=== PATIENT | female | born 1990 | race Caucasian/White ===

== ENCOUNTER 2018-04-09 17:12 | Emergency (ER) | payer OTHER ==
[2018-04-09] MEDS ORDERED: FAMOTIDINE 20 MG/2 ML VIAL IV ONE (18:32)
[2018-04-09] MEDS ORDERED: NA CHLORIDE 0.9% 1,000 ML ONE (18:32)
[2018-04-09] MEDS ORDERED: ONDANSETRON 4 MG/2 ML VIAL ONE (18:32)
[2018-04-09 18:37] LABS: Urine Blood TRACE (NEG); Urine Glucose NEGATIVE (NEG); Urine Protein NEGATIVE (NEG); Urine Specific Gravity >1.030 (1.005-1.030)
[2018-04-09 18:53] LABS: Absolute Lymphocytes (CBC) 2.4 K/uL (0.7-4.9); Absolute Monocytes 0.6 K/uL (0.1-1.3); Absolute Neutrophil 6.6 K/uL (1.8-8.0); Basophils % 0.4 % (0-1.3); Eosinophils % 0.7 % (0-4.4); Hematocrit 36.1 % (36.0-45.0); Lymphocytes % 25.1 % (15.3-44.8); MCH 26.2 pg (27.0-35.0); MCV 78.6 fL (80-100); MPV 7.7 fL (7.6-11.3); Monocytes % 5.9 % (3.3-12.3); RBC Red Blood Cell Count 4.59 M/uL (3.86-4.86)
[2018-04-09 19:27] LABS: BUN Blood Urea Nitrogen 7 mg/dL (7-18); Bicarbonate 23 mmol/L (21-32); Glucose Level 96 mg/dL (74-106); HCG, Quantitative 32093 mIU/mL (1-3); Potassium 3.8 mmol/L (3.5-5.1); Sodium Level 139 mmol/L (136-145)
--- NOTE | 2018-04-09 20:53 | RAD REPORT ---
EXAM DESCRIPTION: US - Transvaginal OB - 04/09/2018 8:46 pm CLINICAL HISTORY: Left lower abdominal pain, pelvic pain COMPARISON: None. FINDINGS: An intrauterine gestational sac is identified containing pole and yolk sac. Gestatio nal sac and crown-rump length measurements yield a 6 week 5 day age. Calculated REMY is 11/28/2018. 11 6 BPM. No intrauterine hematoma or mass. Anechoic fluid is present in the cul-de-sac. A mildly comple x cystic area in the right ovary is present 2.7 x 1.5 x 2.3 cm. Hypoechoic left ovarian mass 16 mm in size is probably a hemorrhagic cyst. Doppler evaluation demonstrates blood flow weighting and bilate ral ovarian stroma. IMPRESSION: Single 6 week 5 day IUP. Heart rate is 116 BPM. No intrauterine hematoma or mass. Minimally complex right side and more complex left-side cysts. Left-side cysts is likely hemorrhagic. Blood flow is identifiable in both ovaries. If patient remains symptomatic, short-term follow-up coul d be performed to evaluate for progression or resolution of the presumed ovarian cysts.
--- NOTE | 2018-04-09 21:18 | EDPHYS ---
Physician Documentation [facility] Name: Aurelia Santacruz Age: 27 yrs Sex: Female : 1990 Arrival Date: 04/09/2018 Time: 17:16 Bed 30 Private MD: ED Physician Jatinder Rowell HPI: 04/09 17:50 This 27 yrs old Female presents to ER via Ambulatory with complaints of cp Vomiting. 17:50 The patient presents to the emergency department with nausea, that is mild, vomiting, cp that is intermittent, abdominal pain, of the left lower quadrant. 17:50 Onset: The symptoms/episode began/occurred today. Possible causes: . cp Associated signs and symptoms: Pertinent positives: abdominal pain, nausea, vomiting, Pertinent negatives: constipation, diarrhea, dysuria, fever, GI bleeding, vaginal discharge. Severity of symptoms: in the emergency department the symptoms are unchanged despite home interventions. 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 - Social history:: Smoking status: Patient uses tobacco products, smokes one pack cigarettes per day. - Ebola Screening: : Patient negative for fever greater than or equal to 101.5 degrees Fahrenheit, and additional compatible Ebola Virus Disease symptoms Patient denies exposure to infectious person Patient denies travel to an Ebola-affected area in the 21 days before illness onset No symptoms or risks identified at this time. ROS: 18:00 Constitutional: Positive for poor PO intake, Negative for body aches, chills, fever. cp 18:00 Eyes: Negative for injury, pain, redness, and discharge. cp 18:00 ENT: Negative for drainage from ear(s), ear pain, sore throat, difficulty swallowing, difficulty handling secretions. 18:00 Neck: Negative for pain with movement, pain at rest, stiffness, tenderness, bony tenderness. 18:00 Cardiovascular: Negative for chest pain, edema, palpitations. 18:00 Respiratory: Negative for cough, shortness of breath, wheezing. 18:00 Abdomen/GI: Positive for abdominal pain, nausea, vomiting, of the left lower quadrant, Negative for diarrhea, constipation, black/tarry stool, rectal bleeding. 18:00 Back: Positive for radiated pain. 18:00 : Negative for urinary symptoms, pelvic pain, vaginal bleeding, vaginal discharge, leakage of fluids. 18:00 Skin: Negative for cellulitis, rash. 18:00 Neuro: Negative for altered mental status, headache, syncope, near syncope, weakness. 18:00 All other systems are negative. Exam: 18:12 Constitutional: The patient appears in no acute distress, alert, awake, non-toxic, well cp developed, well nourished. 18:12 Head/Face: Normocephalic, atraumatic. cp 18:12 Eyes: Periorbital structures: appear normal, Pupils: equal, round, and reactive to light and accomodation, Extraocular movements: intact throughout, Conjunctiva: normal, no exudate, no injection, Sclera: no appreciated abnormality, Lids and lashes: appear normal, bilaterally. 18:12 ENT: External ear(s): are unremarkable, Ear canal(s): are normal, clear, TM's: bulging, is not appreciated, bilaterally, dullness, bilaterally, erythema, is not appreciated, bilaterally, Nose: is normal, Mouth: Lips: moist, Oral mucosa: pink and intact, moist, Posterior pharynx: is normal, airway is patent, no erythema, no exudate, Voice: is normal. 18:12 Neck: ROM/movement: is normal, is supple, without pain, no range of motions limitations, no nuchal rigidity. 18:12 Chest/axilla: Inspection: normal, Palpation: is normal, no crepitus, no tenderness. 18:12 Cardiovascular: Rate: normal, Rhythm: regular, Edema: is not appreciated, JVD: is not appreciated. 18:12 Respiratory: the patient does not display signs of respiratory distress, Respirations: normal, no use of accessory muscles, no retractions, no splinting, no tachypnea, labored breathing, is not present, Breath sounds: are clear throughout, no decreased breath sounds, no stridor, no wheezing. 18:12 Abdomen/GI: Inspection: obese Bowel sounds: active, all quadrants, Palpation: soft, in all quadrants, mild abdominal tenderness, in the left lower quadrant, rebound tenderness, is not appreciated, voluntary guarding, is elicited in the left lower quadrant, involuntary guarding, is not appreciated. 18:12 Back: ROM is normal. 18:12 Skin: cellulitis, is not appreciated, no rash present. 18:12 Neuro: Orientation: to person, place \T\ time. Mentation: lucid, able to follow commands, Motor: moves all fours, strength is normal, Sensation: no obvious gross deficits. Vital Signs: 17:41 BP 129 / 62; Pulse 93; Resp 16; Temp 98.2; Pulse Ox 100% on R/A; Weight 106.59 kg; iw Height 5 ft. 2 in. (157.48 cm); Pain 8/10; 17:54 BP 131 / 72 Supine; Pulse 73; rv 17:54 BP 136 / 77 Sitting; Pulse 83; rv 17:54 BP 126 / 82 Standing; Pulse 103; rv 18:53 BP 120 / 72; Pulse 67; Pulse Ox 100% on R/A; rv 19:57 BP 112 / 74; Pulse 67; Pulse Ox 99% on R/A; rv 20:51 BP 128 / 92; Pulse 74; Pulse Ox 99% on R/A; rv 21:33 BP 128 / 86; Pulse 74; Pulse Ox 98% on R/A; rv 17:41 Body Mass Index 42.98 (106.59 kg, 157.48 cm) iw MDM: 17:41 Patient medically screened. cp 18:00 Differential diagnosis: Nonspecific abd pain, gastritis, cholecystitis, diverticulitis, cp viral gastroenteritis, gastroenteritis, ectopic , vaginitis. 21:15 Data reviewed: vital signs, nurses notes, lab test result(s), radiologic studies, cp ultrasound. 21:15 Counseling: I had a detailed discussion with the patient and/or guardian regarding: the cp historical points, exam findings, and any diagnostic results supporting the discharge/admit diagnosis, lab results, radiology results, the need for outpatient follow up, an OB/Gyne specialist, to return to the emergency department if symptoms worsen or persist or if there are any questions or concerns that arise at home. Response to treatment: the patient's symptoms have markedly improved after treatment, VSS. Nausea improved and vomiting resolved. Will discharge to home for continued monitoring. 04/09 18:25 Order name: Quantitative Hcg cp 04/09 18:25 Order name: Abo/rh Typing; Complete Time: 19:31 cp 04/09 18:25 Order name: Basic Metabolic Panel; Complete Time: 19:31 cp 04/09 18:25 Order name: CBC with Diff; Complete Time: 19:31 cp 04/09 18:25 Order name: HCG, Quantitative; Complete Time: 19:31 EDMS 04/09 20:43 Interpretation: HCGQ 10048; Reviewed. cp 04/09 18:31 Order name: Urine Dipstick--Ancillary (enter results); Complete Time: 19:31 ag 04/09 17:41 Order name: Orthostatics; Complete Time: 17:53 cp 04/09 18:25 Order name: Urine Test (obtain specimen); Complete Time: 18:49 cp 04/09 18:25 Order name: IV Saline Lock; Complete Time: 18:49 cp 04/09 18:31 Order name: Urine --Ancillary (enter results); Complete Time: 19:31 ag 04/09 19:32 Order name: US Transvaginal Ob; Complete Time: 21:10 cp 04/09 18:25 Order name: Labs collected and sent; Complete Time: 18:49 cp 04/09 18:25 Order name: NPO; Complete Time: 18:49 cp 04/09 18:25 Order name: Urine Dipstick-Ancillary (obtain specimen); Complete Time: 18:49 cp 04/09 20:44 Order name: PO challenge; Complete Time: 20:49 cp Administered Medications: 18:48 Drug: Zofran 4 mg Route: IVP; Site: right antecubital; rv 20:47 Follow up: Response: No adverse reaction; Nausea is decreased rv 18:48 Drug: Pepcid 20 mg Route: IVP; Site: right antecubital; rv 20:46 Follow up: Response: No adverse reaction; Nausea is decreased rv 18:49 Drug: NS 0.9% 1000 ml Route: IV; Rate: 1000 ml; Site: right antecubital; rv 20:47 Follow up: Response: No adverse reaction; IV Status: Completed infusion rv Disposition: 04/09/18 21:17 Discharged to Home. Impression: Nausea and vomiting, related conditions, unspecified, first trimester, Other and unspecified ovarian cysts - Bilateral. - Condition is Stable. - Discharge Instructions: Abdominal Pain During , Nausea and Vomiting, Adult, Ovarian Cyst, First Trimester of . - Prescriptions for Pepcid 20 mg Oral Tablet - take 1 tablet by ORAL route every 12 hours for 10 days; 20 tablet. Vitamin 27- 0.8 mg Oral Tablet - take 1 tablet by ORAL route once daily; 60 tablet. Phenergan 25 mg Rectal Suppository - insert 1 suppository by RECTAL route every 6 hours As needed; 12 suppository. promethazine 25 mg Oral Tablet - take 1 tablet by ORAL route every 6 hours As needed; 20 tablet. - Medication Reconciliation Form, Thank You Letter, Antibiotic Education, Prescription Opioid Use, Work release form form. - Follow up: Rosa Sanchez MD; When: 1 week; Reason: Recheck today's complaints. - Problem is new. - Symptoms have improved. Addendum: 04/12/2018 07:21 Co-signature as Attending Physician, Jatinder Rowell MD I agree with the assessment and k dr plan of care. Signatures: Dispatcher [employer] EDMS Jatinder Rowell MD MD kdr Yazmin Abdalla RN RN iw Noble Real PA PA cp Pan Tamayo, RN RN rv Corrections: (The following items were deleted from the chart) 04/09 21:34 21:17 04/09/2018 21:17 Discharged to Home. Impression: Nausea and vomiting; rv related conditions, unspecified, first trimester; Other and unspecified ovarian cysts - Bilateral. Condition is Stable. Forms are Medication Reconciliation Form, Thank You Letter, Antibiotic Education, Prescription Opioid Use. Follow up: Rosa Sanchez; When: 1 week; Reason: Recheck today's complaints. Problem is new. Symptoms have improved. cp
--- NOTE | 2018-04-09 21:18 | ER ---
Nurse's Notes [facility] Name: Aurelia Santacruz Age: 27 yrs Sex: Female : 1990 Arrival Date: 04/09/2018 Time: 17:16 Bed 30 Private MD: Diagnosis: Nausea and vomiting; related conditions, unspecified, first trimester;Other and unspecified ovarian cysts-Bilateral Presentation: 04/09 17:39 Presenting complaint: Patient states: vomiting today, feels cramping/tightness in LLQ iw and back when she vomits, no vaginal bleeding apporx 6 weeks , previous ectopic last year. Transition of care: patient was not received from another setting of care. Onset of symptoms was April 09, 2018. Risk Assessment: Do you want to hurt yourself or someone else? Patient reports no desire to harm self or others. Initial Sepsis Screen: Does the patient meet any 2 criteria? No. Patient's initial sepsis screen is negative. Does the patient have a suspected source of infection? No. Patient's initial sepsis screen is negative. Care prior to arrival: None. 17:39 Method Of Arrival: Ambulatory 17:39 Acuity: CHIRAG 3 iw Triage Assessment: 17:56 GI: Reports vomiting. 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 - Social history:: Smoking status: Patient uses tobacco products, smokes one pack cigarettes per day. - Ebola Screening: : Patient negative for fever greater than or equal to 101.5 degrees Fahrenheit, and additional compatible Ebola Virus Disease symptoms Patient denies exposure to infectious person Patient denies travel to an Ebola-affected area in the 21 days before illness onset No symptoms or risks identified at this time. Screenin:56 Abuse screen: Denies threats or abuse. Denies injuries from another. Nutritional rv screening: No deficits noted. Tuberculosis screening: No symptoms or risk factors identified. Fall Risk None identified. Assessment: 17:55 General: Appears in no apparent distress. comfortable, Behavior is calm, cooperative. rv Pain: Denies pain. Neuro: Level of Consciousness is awake, alert, obeys commands, Oriented to person, place, time, situation. Cardiovascular: Capillary refill < 3 seconds. Respiratory: Airway is patent. GI: Abdomen is round non-distended. : No signs and/or symptoms were reported regarding the genitourinary system. EENT: No signs and/or symptoms were reported regarding the EENT system. Derm: Skin is intact. Vital Signs: 17:41 BP 129 / 62; Pulse 93; Resp 16; Temp 98.2; Pulse Ox 100% on R/A; Weight 106.59 kg; iw Height 5 ft. 2 in. (157.48 cm); Pain 8/10; 17:54 BP 131 / 72 Supine; Pulse 73; rv 17:54 BP 136 / 77 Sitting; Pulse 83; rv 17:54 BP 126 / 82 Standing; Pulse 103; rv 18:53 BP 120 / 72; Pulse 67; Pulse Ox 100% on R/A; rv 19:57 BP 112 / 74; Pulse 67; Pulse Ox 99% on R/A; rv 20:51 BP 128 / 92; Pulse 74; Pulse Ox 99% on R/A; rv 21:33 BP 128 / 86; Pulse 74; Pulse Ox 98% on R/A; rv 17:41 Body Mass Index 42.98 (106.59 kg, 157.48 cm) iw ED Course: 17:16 Patient arrived in ED. rg4 17:40 Triage completed. iw 17:41 Noble Real PA is PHCP. cp 17:41 Jatinder Rowell MD is Attending Physician. cp 17:41 Arm band placed on. iw 17:56 Patient has correct armband on for positive identification. Bed in low position. Call rv light in reach. Side rails up X 1. Pulse ox on. NIBP on. 18:40 Inserted saline lock: 20 gauge in right antecubital area, using aseptic technique. rv 20:46 US Transvaginal Ob In Process Unspecified. EDMS 20:54 Awaiting radiology results. rv 21:14 Rosa Sanchez MD is Referral Physician. cp 21:34 No provider procedures requiring assistance completed. IV discontinued, bleeding rv controlled, No redness/swelling at site. Pressure dressing applied. Administered Medications: 18:48 Drug: Zofran 4 mg Route: IVP; Site: right antecubital; rv 20:47 Follow up: Response: No adverse reaction; Nausea is decreased rv 18:48 Drug: Pepcid 20 mg Route: IVP; Site: right antecubital; rv 20:46 Follow up: Response: No adverse reaction; Nausea is decreased rv 18:49 Drug: NS 0.9% 1000 ml Route: IV; Rate: 1000 ml; Site: right antecubital; rv 20:47 Follow up: Response: No adverse reaction; IV Status: Completed infusion rv Outcome: 21:17 Discharge ordered by . elle 21:34 Discharged to home ambulatory. rv 21:34 Condition: improved 21:34 Discharge instructions given to patient, Instructed on discharge instructions, follow up and referral plans. medication usage, Prescriptions given X 4. 21:34 Patient left the ED. rv Signatures: Dispatcher [employer] Yazmin Álvarez, RN RN Noble Gongora PA PA cp Garcia, Rubi rg4 Pan Tamayo RN RN rv
[2018-04-09 21:41] VITALS: TEMP 98.2
[2018-04-09 21:47] VITALS: BP 128/86; O2SAT 98
== END 2018-04-09 21:34 | disposition home or self-care (01) ==
LOC: ER 17:12
DX: N83.292 Other ovarian cyst, left side (principal); N83.291 Other ovarian cyst, right side; O99.331 Smoking (tobacco) complicating pregnancy, first trimester; F17.210 Nicotine dependence, cigarettes, uncomplicated; Z88.5 Allergy status to narcotic agent
CPT/HCPCS: 36415; 76817; 80048; 81003; 81025; 84702; 85025; 86900; 86901; 96361; 96374; 96375; 99284; J2405; J7030

== ENCOUNTER 2018-05-22 15:41 | Emergency (ER) | payer OTHER ==
[2018-05-22] MEDS ORDERED: NA CHLORIDE 0.9% 1,000 ML ONE (16:24)
[2018-05-22] MEDS ORDERED: PROMETHAZINE 25 MG/ML VIAL ONE (16:24)
[2018-05-22 16:36] LABS: Absolute Lymphocytes (CBC) 1.6 K/uL (0.7-4.9); Absolute Monocytes 0.5 K/uL (0.1-1.3); Absolute Neutrophil 7.1 K/uL (1.8-8.0); Basophils % 0.4 % (0-1.3); Eosinophils % 0.7 % (0-4.4); Hematocrit 38.1 % (36.0-45.0); Lymphocytes % 16.8 % (15.3-44.8); MCH 27.2 pg (27.0-35.0); MCV 81.1 fL (80-100); Monocytes % 5.6 % (3.3-12.3)
[2018-05-22 17:03] LABS: Urine Bacteria 20-50 /HPF (<20); Urine Culture Reflex Order REFLEXED; Urine Mucus 3+ /HPF (NONE SEEN); Urine RBC <5 /HPF (NONE SEEN)
[2018-05-22 17:14] LABS: Urine Blood NEGATIVE (NEG); Urine Glucose NEGATIVE (NEG); Urine Protein NEGATIVE (NEG); Urine Specific Gravity >1.030 (1.005-1.030)
[2018-05-22 17:15] LABS: BUN Blood Urea Nitrogen 7 mg/dL (7-18); Bicarbonate 23 mmol/L (21-32); Glucose Level 78 mg/dL (74-106); Potassium 3.7 mmol/L (3.5-5.1); Sodium Level 136 mmol/L (136-145)
--- NOTE | 2018-05-22 17:28 | EDPHYS ---
Physician Documentation [facility] Name: Aurelia Santacruz Age: 27 yrs Sex: Female : 1990 Arrival Date: 05/22/2018 Time: 15:45 Bed 6 Private MD: None, None ED Physician Toñito Ernandez HPI: 05/22 16:39 This 27 yrs old Female presents to ER via Ambulatory with complaints of 12 pm1 wks , Nausea/Vomiting. 16:39 The patient presents to the emergency department with nausea, vomiting, 6 times since pm1 the onset of symptoms. Onset: The symptoms/episode began/occurred 2 day(s) ago. Possible causes: . The symptoms are aggravated by Diclegis appears to make it worse per patient. Associated signs and symptoms: Pertinent negatives: abdominal pain, dysuria, fever, vaginal discharge, vaginal bleeding. The patient has experienced similar episodes in the past, multiple times. The patient has been recently seen by a physician: Patient was seen by her OB on 04/16 and prescribed diclegis. Patient started the medications two days ago and reports that the medications seems to make her nausea and vomiting worse. 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 - Social history:: Smoking status: Patient/guardian denies using tobacco. - Ebola Screening: : Patient negative for fever greater than or equal to 101.5 degrees Fahrenheit, and additional compatible Ebola Virus Disease symptoms Patient denies exposure to infectious person Patient denies travel to an Ebola-affected area in the 21 days before illness onset No symptoms or risks identified at this time. ROS: 16:39 Constitutional: Negative for fever, chills, and weight loss, Eyes: Negative for injury, pm1 pain, redness, and discharge, ENT: Negative for injury, pain, and discharge, Neck: Negative for injury, pain, and swelling, Cardiovascular: Negative for chest pain, palpitations, and edema, Respiratory: Negative for shortness of breath, cough, wheezing, and pleuritic chest pain. 16:39 Back: Negative for injury and pain, : Negative for injury, bleeding, discharge, and swelling, MS/Extremity: Negative for injury and deformity, Skin: Negative for injury, rash, and discoloration, Neuro: Negative for headache, weakness, numbness, tingling, and seizure. 16:39 Abdomen/GI: Positive for nausea and vomiting, Negative for abdominal pain, diarrhea. Exam: 16:39 Constitutional: This is a well developed, well nourished patient who is awake, alert, pm1 and in no acute distress. Head/Face: Normocephalic, atraumatic. Eyes: Pupils equal round and reactive to light, extra-ocular motions intact. Lids and lashes normal. Conjunctiva and sclera are non-icteric and not injected. Cornea within normal limits. Periorbital areas with no swelling, redness, or edema. ENT: Nares patent. No nasal discharge, no septal abnormalities noted. Tympanic membranes are normal and external auditory canals are clear. Oropharynx with no redness, swelling, or masses, exudates, or evidence of obstruction, uvula midline. Mucous membranes moist. Neck: Trachea midline, no thyromegaly or masses palpated, and no cervical lymphadenopathy. Supple, full range of motion without nuchal rigidity, or vertebral point tenderness. No Meningismus. Chest/axilla: Normal chest wall appearance and motion. Nontender with no deformity. No lesions are appreciated. Cardiovascular: Regular rate and rhythm with a normal S1 and S2. No gallops, murmurs, or rubs. No pulse deficits. Respiratory: Lungs have equal breath sounds bilaterally, clear to auscultation and percussion. No rales, rhonchi or wheezes noted. No increased work of breathing, no retractions or nasal flaring. Abdomen/GI: Soft, non-tender, with normal bowel sounds. No distension or tympany. No guarding or rebound. No evidence of tenderness throughout. Back: No spinal tenderness. No costovertebral tenderness. Full range of motion. Skin: Warm, dry with normal turgor. Normal color with no rashes, no lesions, and no evidence of cellulitis. MS/ Extremity: Pulses equal, no cyanosis. Neurovascular intact. Full, normal range of motion. 16:39 Neuro: Orientation: is normal, Motor: moves all fours. Vital Signs: 15:49 BP 129 / 73; Pulse 89; Resp 17; Temp 97.6; Pulse Ox 98% on R/A; Weight 106.59 kg; aj Height 5 ft. 2 in. (157.48 cm); 17:55 BP 127 / 74; Pulse 84; Resp 16; Pulse Ox 97% on R/A; la1 15:49 Body Mass Index 42.98 (106.59 kg, 157.48 cm) aj MDM: 15:58 Patient medically screened. pm1 16:44 Data reviewed: vital signs. Data interpreted: Pulse oximetry: on room air is 98 %. pm1 Interpretation: normal. 17:26 Counseling: I had a detailed discussion with the patient and/or guardian regarding: the pm1 historical points, exam findings, and any diagnostic results supporting the discharge/admit diagnosis, lab results, the need for outpatient follow up, to return to the emergency department if symptoms worsen or persist or if there are any questions or concerns that arise at home. 05/22 16:05 Order name: Urine Microscopic Only; Complete Time: 17:22 pm1 05/22 16:05 Order name: CBC with Diff; Complete Time: 17:22 pm1 05/22 16:05 Order name: BMP; Complete Time: 17:22 pm1 05/22 16:32 Order name: Urine Dipstick--Ancillary (enter results); Complete Time: 17:22 ag 05/22 16:32 Order name: Urine --Ancillary (enter results); Complete Time: 17:22 ag 05/22 17:08 Order name: Urine Culture EDSC 05/22 16:05 Order name: Urine Dipstick-Ancillary (obtain specimen); Complete Time: 16:24 pm1 05/22 16:05 Order name: IV Saline Lock; Complete Time: 16:25 pm1 05/22 17:26 Order name: FHT's; Complete Time: 17:31 pm1 Administered Medications: 16:25 Drug: NS 0.9% 1000 ml Route: IV; Rate: 1000 ml; Site: right antecubital; la1 17:39 Follow up: IV Status: Completed infusion la1 16:25 Drug: Phenergan 12.5 mg Route: IVP; Site: right antecubital; la1 17:39 Follow up: Response: No adverse reaction; Nausea is decreased la1 17:39 Drug: Rocephin 1 grams Route: IV; Rate: calculated rate; Site: right antecubital; la1 17:40 Follow up: IV Status: Completed infusion la1 Disposition: 05/22/18 17:27 Discharged to Home. Impression: Vomiting, Urinary tract infection, site not specified. - Condition is Stable. - Discharge Instructions: and Urinary Tract Infection, Vomiting, Adult. - Prescriptions for Macrobid 100 mg Oral Capsule - take 1 capsule by ORAL route every 12 hours for 10 days; 20 capsule. Phenergan 25 mg Rectal Suppository - insert 1 suppository by RECTAL route every 6 hours As needed; 12 suppository. promethazine 25 mg Oral Tablet - take 1 tablet by ORAL route every 6 hours As needed; 20 tablet. - Work release form, Medication Reconciliation Form, Thank You Letter, Antibiotic Education form. - Follow up: Emergency Department; When: As needed; Reason: Worsening of condition. Follow up: Rosa Sanchez MD; When: 2 - 3 days; Reason: Recheck today's complaints, Continuance of care, Re-evaluation by your physician. - Problem is new. - Symptoms have improved. Addendum: 05/24/2018 07:57 Co-signature as Attending Physician, Toñito Ernandez MD I agree with the assessment and w a plan of care. Signatures: Dispatcher [employer] EDBritta Hdez RN RN aj Attema, Lee, RN RN la1 Manuel Valderrama, SUSTAINABILITY OFFICER SUSTAINABILITY OFFICER pm1 Toñito Ernandez MD MD md Corrections: (The following items were deleted from the chart) 05/22 17:27 17:27 05/22/2018 17:27 Discharged to Home. Impression: Vomiting of , pm1 unspecified; Urinary tract infection, site not specified. Condition is Stable. Forms are Medication Reconciliation Form, Thank You Letter, Antibiotic Education, Prescription Opioid Use. Follow up: Emergency Department; When: As needed; Reason: Worsening of condition. Follow up: Rosa Sanchez; When: 2 - 3 days; Reason: Recheck today's complaints, Continuance of care, Re-evaluation by your physician. Problem is new. Symptoms have improved. pm1 17:55 17:27 05/22/2018 17:27 Discharged to Home. Impression: Vomiting; Urinary tract la1 infection, site not specified. Condition is Stable. Forms are Medication Reconciliation Form, Thank You Letter, Antibiotic Education, Prescription Opioid Use. Follow up: Emergency Department; When: As needed; Reason: Worsening of condition. Follow up: Mini Rekhi; When: 2 - 3 days; Reason: Recheck today's complaints, Continuance of care, Re-evaluation by your physician. Problem is new. Symptoms have improved. pm1
--- NOTE | 2018-05-22 17:28 | ER ---
Nurse's Notes [facility] Name: Aurelia Santacruz Age: 27 yrs Sex: Female : 1990 Arrival Date: 05/22/2018 Time: 15:45 Bed 6 Private MD: None, None Diagnosis: Urinary tract infection, site not specified;Vomiting Presentation: 05/22 15:48 Presenting complaint: Patient states: Reports nausea and vomiting x 3 episodes today. aj Patient reports her Diclegis makes her more nauseated. Patient presents to triage with large Apple Juice in hand. Transition of care: patient was not received from another setting of care. Onset of symptoms was May 22, 2018. Risk Assessment: Do you want to hurt yourself or someone else? Patient reports no desire to harm self or others. Initial Sepsis Screen: Does the patient meet any 2 criteria? No. Patient's initial sepsis screen is negative. Does the patient have a suspected source of infection? No. Patient's initial sepsis screen is negative. Care prior to arrival: None. 15:48 Method Of Arrival: Ambulatory 15:48 Acuity: CHIRAG 4 Triage Assessment: 15:49 General: Appears in no apparent distress. comfortable, Behavior is calm, cooperative, aj appropriate for age. Pain: Denies pain. Neuro: Level of Consciousness is awake, alert, obeys commands, Oriented to person, place, time, situation, Appropriate for age. Respiratory: Airway is patent Respiratory effort is even, unlabored, Respiratory pattern is regular, symmetrical. GI: Reports nausea, vomiting. Derm: Skin is intact, is healthy with good turgor, Skin is pink, warm \T\ dry. normal. 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 - Social history:: Smoking status: Patient/guardian denies using tobacco. - Ebola Screening: : Patient negative for fever greater than or equal to 101.5 degrees Fahrenheit, and additional compatible Ebola Virus Disease symptoms Patient denies exposure to infectious person Patient denies travel to an Ebola-affected area in the 21 days before illness onset No symptoms or risks identified at this time. Screenin:26 Abuse screen: Denies threats or abuse. Nutritional screening: No deficits noted. la1 Tuberculosis screening: No symptoms or risk factors identified. Fall Risk None identified. Assessment: 16:26 General: Appears in no apparent distress. Behavior is calm, cooperative. Pain: la1 Complains of pain in left low back and right low back. Neuro: Level of Consciousness is awake, alert, obeys commands, Oriented to person, place, time, situation. Cardiovascular: Capillary refill < 3 seconds Patient's skin is warm and dry. Respiratory: Airway is patent Respiratory effort is even, unlabored, Respiratory pattern is regular, symmetrical. GI: Abdomen is round non-distended, Bowel sounds present X 4 quads. Abd is soft and non tender X 4 quads. Reports nausea, vomiting. : No signs and/or symptoms were reported regarding the genitourinary system. 17:42 Reassessment: Patient appears in no apparent distress at this time. No changes from la1 previously documented assessment. Patient and/or family updated on plan of care and expected duration. Pain level reassessed. Vital Signs: 15:49 BP 129 / 73; Pulse 89; Resp 17; Temp 97.6; Pulse Ox 98% on R/A; Weight 106.59 kg; aj Height 5 ft. 2 in. (157.48 cm); 17:55 BP 127 / 74; Pulse 84; Resp 16; Pulse Ox 97% on R/A; la1 15:49 Body Mass Index 42.98 (106.59 kg, 157.48 cm) aj Vitals: 17:31 Heart Tones 163. la1 ED Course: 15:45 Patient arrived in ED. mr 15:46 None, None is Private Physician. mr 15:49 Triage completed. aj 15:49 Arm band placed on right wrist. Patient placed in an exam room. aj 15:55 Manuel Valderrama NP is PHCP. pm1 15:55 Toñito Ernandez MD is Attending Physician. pm1 16:08 Erica Pruett, RN is Primary Nurse. 16:11 Tirso Hyatt, DOROTHY is Primary Nurse. la1 16:25 No provider procedures requiring assistance completed. Inserted saline lock: 22 gauge la1 in right antecubital area, using aseptic technique. Blood collected. 16:26 Placed in gown. Bed in low position. la1 17:26 Rosa Sanchez MD is Referral Physician. pm1 17:42 IV discontinued, intact, bleeding controlled, No redness/swelling at site. Pressure la1 dressing applied. Administered Medications: 16:25 Drug: NS 0.9% 1000 ml Route: IV; Rate: 1000 ml; Site: right antecubital; la1 17:39 Follow up: IV Status: Completed infusion la1 16:25 Drug: Phenergan 12.5 mg Route: IVP; Site: right antecubital; la1 17:39 Follow up: Response: No adverse reaction; Nausea is decreased la1 17:39 Drug: Rocephin 1 grams Route: IV; Rate: calculated rate; Site: right antecubital; la1 17:40 Follow up: IV Status: Completed infusion la1 Outcome: 17:27 Discharge ordered by . pm1 17:55 Discharged to home ambulatory. la1 17:55 Condition: stable 17:55 Discharge instructions given to patient, Instructed on discharge instructions, follow up and referral plans. medication usage, Demonstrated understanding of instructions, follow-up care, medications, Prescriptions given X 2. 17:55 Patient left the ED. la1 Signatures: Erica Pruett RN RN ch Myers, Amanda, RN RN aj Rivera, Maria mr Attema, DOROTHY Chahal RN la1 Manuel Valderrama, PROCESS IMPROVEMENT SPECIALIST PROCESS IMPROVEMENT SPECIALIST pm1
[2018-05-22] MEDS ORDERED: CEFTRIAXONE/SWI 1gm 1 GM/10 ML SYR ONE (17:34)
[2018-05-22 18:18] VITALS: TEMP 97.6
[2018-05-22 18:19] VITALS: BP 127/74; O2SAT 97
== END 2018-05-22 17:55 | disposition home or self-care (01) ==
LOC: ER 15:41
DX: O23.41 Unspecified infection of urinary tract in pregnancy, first trimester (principal); Z88.6 Allergy status to analgesic agent
CPT/HCPCS: 36415; 80048; 81003; 81015; 81025; 85025; 87086; 87088; 96361; 96374; 96375; 99284; J0696; J2550; J7030

== ENCOUNTER 2019-04-23 21:16 | Emergency (ER) | payer OTHER ==
--- OUTSIDE RECORDS SUMMARY | 2019-04-23 21:18 | XMS REPORT ---
:1990 [facility] Address [address] [place] [address] Dr. Rea [address] [place] [id number] Care Team Providers Name Role Phone Unavailable Unavailable Unavailable Problems This patient has no known problems. Allergies, Adverse Reactions, Alerts This patient has no known allergies or adverse reactions. Medications This patient has no known medications.
[2019-04-23] MEDS ORDERED: KETOROLAC 30 MG/ML INJ ONE (22:39)
--- NOTE | 2019-04-23 22:52 | EDPHYS ---
Physician Documentation [facility] Name: Aurelia Santacruz Age: 28 yrs Sex: Female : 1990 Arrival Date: 04/23/2019 Time: 21:20 Bed 16 Private MD: ED Physician Enrico Burroughs HPI: 04/23 22:02 This 28 yrs old Female presents to ER via Ambulatory with complaints of jr8 Breast Problem, Headache. 22:10 Patient stated that she will have a sore spot at top of right breast that will come and jr8 go. Stated that this time it is not going away. Red and painful to touch. Denies fevers. Stated that the pain is causing a headache now . Onset: The symptoms/episode began/occurred acutely, 2 day(s) ago. Severity of symptoms: At their worst the symptoms were mild in the emergency department the symptoms are unchanged. The patient has experienced similar episodes in the past, a few times. The patient has not recently seen a physician. 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 - Social history:: Smoking status: Patient uses tobacco products, smokes one pack cigarettes per day. - Ebola Screening: : No symptoms or risks identified at this time. ROS: 22:10 Eyes: Negative for injury, pain, redness, and discharge, ENT: Negative for injury, jr8 pain, and discharge, Neck: Negative for injury, pain, and swelling, Cardiovascular: Negative for chest pain, palpitations, and edema, Respiratory: Negative for shortness of breath, cough, wheezing, and pleuritic chest pain, Abdomen/GI: Negative for abdominal pain, nausea, vomiting, diarrhea, and constipation, Back: Negative for injury and pain, MS/Extremity: Negative for injury and deformity, Skin: Negative for injury, rash, and discoloration, Neuro: Negative for headache, weakness, numbness, tingling, and seizure. Exam: 22:10 Eyes: Pupils equal round and reactive to light, extra-ocular motions intact. Lids and jr8 lashes normal. Conjunctiva and sclera are non-icteric and not injected. Cornea within normal limits. Periorbital areas with no swelling, redness, or edema. ENT: Nares patent. No nasal discharge, no septal abnormalities noted. Tympanic membranes are normal and external auditory canals are clear. Oropharynx with no redness, swelling, or masses, exudates, or evidence of obstruction, uvula midline. Mucous membranes moist. Neck: Trachea midline, no thyromegaly or masses palpated, and no cervical lymphadenopathy. Supple, full range of motion without nuchal rigidity, or vertebral point tenderness. No Meningismus. Cardiovascular: Regular rate and rhythm with a normal S1 and S2. No gallops, murmurs, or rubs. Normal PMI, no JVD. No pulse deficits. Respiratory: Lungs have equal breath sounds bilaterally, clear to auscultation and percussion. No rales, rhonchi or wheezes noted. No increased work of breathing, no retractions or nasal flaring. Abdomen/GI: Soft, non-tender, with normal bowel sounds. No distension or tympany. No guarding or rebound. No evidence of tenderness throughout. Back: No spinal tenderness. No costovertebral tenderness. Full range of motion. Skin: Warm, dry with normal turgor. Normal color with no rashes, no lesions, and no evidence of cellulitis. MS/ Extremity: Pulses equal, no cyanosis. Neurovascular intact. Full, normal range of motion. Neuro: Awake and alert, GCS 15, oriented to person, place, time, and situation. Cranial nerves II-XII grossly intact. Motor strength 5/5 in all extremities. Sensory grossly intact. Cerebellar exam normal. Normal gait. 22:10 Chest/axilla: Breasts: 2.5 cm area of redness and induration with tenderness noted to the right breast at the 1 o'clock position , Lymph nodes: lymphadenopathy is not appreciated. Vital Signs: 21:37 BP 150 / 96; Pulse 93; Resp 18; Temp 98.3; Pulse Ox 99% on R/A; Weight 104.33 kg (R); ak1 Height 5 ft. 2 in. (157.48 cm) (R); Pain 10/10; 22:48 BP 145 / 91; Pulse 86; Resp 18; Temp 98.1; Pulse Ox 99% on R/A; aa1 21:37 Body Mass Index 42.07 (104.33 kg, 157.48 cm) ak1 MDM: 21:33 Patient medically screened. jr8 22:49 Data reviewed: vital signs, nurses notes, radiologic studies, ultrasound. Data jr8 interpreted: Pulse oximetry: on room air is 99 %. Interpretation: normal. Counseling: I had a detailed discussion with the patient and/or guardian regarding: the historical points, exam findings, and any diagnostic results supporting the discharge/admit diagnosis, radiology results, the need for outpatient follow up, a family practitioner, to return to the emergency department if symptoms worsen or persist or if there are any questions or concerns that arise at home. ED course: Discussed with patient that she has complex cyst that is inflamed currently. Will put on antibiotics. No I\T\D necessary. Will need to f/u. Patient good with plan . 04/23 21:48 Order name: BREAST/AXILLA, COMPLETE EDMS Administered Medications: 22:48 Drug: TORadol - Ketorolac 15 mg Route: IM; Site: right deltoid; aa1 Disposition: 04/24 06:00 Co-signature as Attending Physician, Enrico Burroughs MD I agree with the assessment and tw4 plan of care. Disposition: 04/23/19 22:51 Discharged to Home. Impression: Solitary cyst of right breast. - Condition is Stable. - Discharge Instructions: Breast Cyst. - Prescriptions for Ibuprofen 800 mg Oral Tablet - take 1 tablet by ORAL route every 12 hours As needed take with food; 20 tablet. Bactrim DS 800- 160 mg Oral Tablet - take 1 tablet by ORAL route every 12 hours for 7 days; 14 tablet. - Medication Reconciliation Form, Thank You Letter, Antibiotic Education, Prescription Opioid Use form. - Follow up: Private Physician; When: 5 - 6 days; Reason: Recheck today's complaints, Continuance of care, Re-evaluation by your physician. - Problem is new. - Symptoms have improved. Signatures: Dispatcher [employer] EDMS Caitlin Mosley, RN RN aa1 Kumar Mariano PA PA jr8 Pamela Oneal RN RN ak1 Enrico Burroughs MD MD tw4 Corrections: (The following items were deleted from the chart) 04/23 23:08 22:51 04/23/2019 22:51 Discharged to Home. Impression: Solitary cyst of right breast. aa1 Condition is Stable. Forms are Medication Reconciliation Form, Thank You Letter, Antibiotic Education, Prescription Opioid Use. Follow up: Private Physician; When: 5 - 6 days; Reason: Recheck today's complaints, Continuance of care, Re-evaluation by your physician. Problem is new. Symptoms have improved. jr8
--- NOTE | 2019-04-23 22:52 | ER ---
Nurse's Notes [facility] Name: Aurelia Santacruz Age: 28 yrs Sex: Female : 1990 Arrival Date: 04/23/2019 Time: 21:20 Bed 16 Private MD: Diagnosis: Solitary cyst of right breast Presentation: 04/23 21:38 Presenting complaint: Patient states: cyst on right breast X1 week. pt c/o headache X1 ak1 week. pt took 800 mg ibuprofen. pt stated she has had hx cyst on breast X2 years, cyst "come and go" this time the cyst has "stayed longer than any other". Transition of care: patient was not received from another setting of care. Onset of symptoms is unknown. Risk Assessment: Do you want to hurt yourself or someone else? Patient reports no desire to harm self or others. Initial Sepsis Screen: Does the patient meet any 2 criteria? No. Patient's initial sepsis screen is negative. Does the patient have a suspected source of infection? No. Patient's initial sepsis screen is negative. Care prior to arrival: None. 21:38 Method Of Arrival: Ambulatory ak1 21:38 Acuity: CHIRAG 4 ak1 Triage Assessment: 21:41 General: Appears in no apparent distress. Behavior is calm, cooperative. Pain: ak1 Complains of pain in anterior aspect of right upper chest and right breast. 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 Neuro: Level of Consciousness is awake, alert, obeys ak1 commands, Oriented to person, place, time, situation, Decision Support Analyst are equal bilaterally Moves all extremities. Gait is steady, Speech is normal, Facial symmetry appears normal. 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 - Social history:: Smoking status: Patient uses tobacco products, smokes one pack cigarettes per day. - Ebola Screening: : No symptoms or risks identified at this time. Screenin:41 Abuse screen: Denies threats or abuse. Denies injuries from another. Nutritional ak1 screening: No deficits noted. Tuberculosis screening: No symptoms or risk factors identified. Fall Risk None identified. Assessment: 22:00 General: Appears in no apparent distress. comfortable, Behavior is calm, cooperative, aa1 appropriate for age. Pain: Complains of pain in right breast. Neuro: Level of Consciousness is awake, alert, obeys commands, Oriented to person, place, time, situation, Moves all extremities. Full function. Cardiovascular: Denies chest pain, palpitations, shortness of breath, Heart tones S1 S2 present Rhythm is regular. Respiratory: Airway is patent Respiratory effort is even, unlabored, Respiratory pattern is regular, symmetrical. GI: No signs and/or symptoms were reported involving the gastrointestinal system. : No signs and/or symptoms were reported regarding the genitourinary system. EENT: No signs and/or symptoms were reported regarding the EENT system. Derm: Skin is intact, is healthy with good turgor, Skin is pink, warm \\T\\ dry. Musculoskeletal: Circulation, motion, and sensation intact. Capillary refill < 3 seconds. 22:48 Reassessment: Patient appears in no apparent distress at this time. Patient is alert, aa1 oriented x 3, equal unlabored respirations, skin warm/dry/pink. PA at bedside discussing results. 23:00 Reassessment: Patient appears in no apparent distress at this time. Patient is alert, aa1 oriented x 3, equal unlabored respirations, skin warm/dry/pink. Discussed d/c \\T\\ f/u instructions with pt; denies questions or concerns at this time. Ambulatory to lobby with steady gait. Vital Signs: 21:37 BP 150 / 96; Pulse 93; Resp 18; Temp 98.3; Pulse Ox 99% on R/A; Weight 104.33 kg (R); ak1 Height 5 ft. 2 in. (157.48 cm) (R); Pain 10/10; 22:48 BP 145 / 91; Pulse 86; Resp 18; Temp 98.1; Pulse Ox 99% on R/A; aa1 21:37 Body Mass Index 42.07 (104.33 kg, 157.48 cm) ak1 ED Course: 21:20 Patient arrived in ED. es 21:33 Kumar Mariano PA is PHCP. jr8 21:33 Enrico Burroughs MD is Attending Physician. jr8 21:37 Arm band placed on Patient placed in an exam room, on a stretcher, on pulse oximetry, ak1 Patient notified of wait time. 21:40 Triage completed. ak1 21:41 Patient has correct armband on for positive identification. Bed in low position. Call ak1 light in reach. Side rails up X 1. Adult w/ patient. Pulse ox on. NIBP on. 22:16 Caitlin Mosley, RN is Primary Nurse. aa1 22:26 Ultrasound completed. Patient tolerated well. 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 sg3 22:27 BREAST/AXILLA, COMPLETE In Process Unspecified. EDMS 22:49 No provider procedures requiring assistance completed. Patient did not have IV access aa1 during this emergency room visit. Administered Medications: 22:48 Drug: TORadol - Ketorolac 15 mg Route: IM; Site: right deltoid; aa1 Outcome: 22:51 Discharge ordered by MD. jr8 23:00 Discharged to home ambulatory, with family. aa1 23:00 Condition: good 23:00 Discharge instructions given to patient, family, Instructed on discharge instructions, follow up and referral plans. medication usage, Demonstrated understanding of instructions, follow-up care, medications, Prescriptions given X 2. 23:08 Patient left the ED. aa1 Signatures: Dispatcher [employer] EDKS Caitlin Mosley, RN RN [email or web address] Maye Miles Josh, PA PA jrPamela Young RN RN ak1 Rosanna Szymanski sg3
[2019-04-23 23:56] VITALS: O2SAT 99
[2019-04-23 23:58] VITALS: BP 145/91; TEMP 98.1
--- NOTE | 2019-04-24 08:56 | RAD REPORT ---
EXAM DESCRIPTION: US - BREAST/AXILLA, COMPLETE - 04/23/2019 10:27 pm CLINICAL HISTORY: Right breast pain COMPARISON: None FINDINGS: 2 centimeter fluid collection is present within the inner right breast. Increased vascula rity is present peripherally. This likely represents an abscess IMPRESSION: A 2 centimeter fluid collection inner right breast likely represents an abscess
== END 2019-04-23 23:08 | disposition home or self-care (01) ==
LOC: ER 21:16
DX: N60.01 Solitary cyst of right breast (principal); F17.210 Nicotine dependence, cigarettes, uncomplicated
CPT/HCPCS: 76641; 96372; 99284

== ENCOUNTER 2020-02-08 11:14 | Emergency (ER) | payer OTHER, SELFPAY ==
--- NOTE | 2020-02-08 11:58 | RAD REPORT ---
EXAM DESCRIPTION: Lora Single View02/08/2020 11:45 am CLINICAL HISTORY: Chest pain COMPARISON: 2008 FINDINGS: The lungs appear clear of acute infiltrate. The heart is normal size IMPRESSION: No acute abnormalities displayed
[2020-02-08 12:02] LABS: Protime INR 1.06
[2020-02-08 12:03] LABS: Absolute Lymphocytes (CBC) 2.5 K/uL (0.7-4.9); Basophils % 1.1 % (0-1.3); Hematocrit 32.4 % (36.0-45.0); Lymphocytes % 30.8 % (15.3-44.8); MPV 7.9 fL (7.6-11.3); RBC Red Blood Cell Count 4.44 M/uL (3.86-4.86)
[2020-02-08 12:20] LABS: ALT/SGPT 24 U/L (12-78); AST/SGOT 18 U/L (15-37); Albumin 3.7 g/dL (3.4-5.0); Alkaline Phosphatase 85 U/L (45-117); BUN Blood Urea Nitrogen 11 mg/dL (7-18); Bicarbonate 22 mmol/L (21-32); Bilirubin Direct < 0.1 mg/dL (0-0.2); Bilirubin Total 0.2 mg/dL (0.2-1.0); Glucose Level 96 mg/dL (74-106); Lipase 68 U/L (73-393); NT PRO-BNP 19 pg/mL (<125); Potassium 3.6 mmol/L (3.5-5.1); Protein, Total 8.1 g/dL (6.4-8.2); Sodium Level 139 mmol/L (136-145); Troponin (Emerg Dept Use Only) < 0.02 ng/mL (0.0-0.045)
--- OUTSIDE RECORDS SUMMARY | 2020-02-08 12:32 | XMS REPORT | Continuity of Care Document ---
:1990 Author Organization [facility] Address [address] [place] [address] Dr. Re[address] [place] [id number] Care Team Providers Name Role Phone Unavailable Unavailable Unavailable Problems This patient has no known problems. Allergies, Adverse Reactions, Alerts This patient has no known allergies or adverse reactions. Medications This patient has no known medications. Procedures This patient has no known procedures. Results This patient has no known results.
[2020-02-08 13:00] LABS: Urine Blood NEGATIVE (NEG); Urine Glucose NEGATIVE (NEG); Urine Protein 1+ (NEG); Urine Specific Gravity 1.025 (1.005-1.030)
--- NOTE | 2020-02-08 13:20 | EDPHYS ---
Physician Documentation [facility] Name: Aurelia Santacruz Age: 29 yrs Sex: Female : 1990 Arrival Date: 02/08/2020 Time: 11:16 Bed 16 Private MD: ED Physician Jatinder Rowell HPI: 02/07 13:16 This 29 yrs old Female presents to ER via EMS with complaints of Chest Pain. [facility] 13:16 The patient or guardian reports chest pain that is located primarily in the substernal [facility] area. The pain radiates to the left arm. Associated signs and symptoms: Pertinent negatives: abdominal pain, cough, lower extremity pain, lower extremity swelling, lightheadedness, nausea, recent travel, syncope, vomiting. The chest pain is described as sharp. Duration: The patient or guardian reports a single episode, that lasted 15 minute(s). Modifying factors: The symptoms are alleviated by nothing. the symptoms are aggravated by nothing. This is a 29 year old female with no chronic medical conditions that presents to the ED with complaints of chest pain beginning after bending over just prior to arrival. Pain lasted for approx 15 minutes and is currently resolved. Patient admits to tobacco use. Fam history of CAD. . 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 - Social history:: Smoking status: Patient reports the use of cigarette tobacco products, smokes one pack cigarettes per day. ROS: 13:16 Constitutional: Negative for fever, chills, and weight loss. jmm 13:16 Respiratory: Negative for shortness of breath, cough, wheezing, and pleuritic chest pain, Abdomen/GI: Negative for abdominal pain, nausea, vomiting, diarrhea, and constipation, Back: Negative for injury and pain, Neuro: Negative for headache, weakness, numbness, tingling, and seizure. 13:16 Cardiovascular: Positive for chest pain. 13:16 All other systems are negative. Exam: 13:16 Constitutional: This is a well developed, well nourished patient who is awake, alert, jmm and in no acute distress. Head/Face: atraumatic. Eyes: EOMI, no conjunctival erythema appreciated ENT: Moist Mucus Membranes Neck: Trachea midline, Supple Chest/axilla: Normal chest wall appearance and motion. Cardiovascular: Regular rate and rhythm. No edema appreciated Respiratory: Normal respirations, no respiratory distress appreciated Abdomen/GI: Non distended, soft Back: Normal ROM Skin: General appearance color normal MS/ Extremity: Moves all extremities, no obvious deformities appreciated, no edema noted to the lower extremities Neuro: Awake and alert, normal gait Psych: Behavior is normal, Mood is normal, Patient is cooperative and pleasant 13:16 Cardiovascular: Rate: normal, Rhythm: regular, Pulses: no pulse deficits are appreciated. 13:16 ECG was reviewed by the Attending Physician. Vital Signs: 11:19 BP 128 / 85; Pulse 86; Resp 14; Temp 98; Pulse Ox 98% ; Weight 108.86 kg; Height 5 ft. bp 2 in. (157.48 cm); 12:50 BP 121 / 83; Pulse 68; Resp 12; Pulse Ox 100% ; bp 13:23 BP 136 / 87; Pulse 84; Resp 16; Pulse Ox 100% ; bp 11:19 Body Mass Index 43.90 (108.86 kg, 157.48 cm) bp MDM: 11:36 Patient medically screened. [facility] 13:19 Data reviewed: vital signs, nurses notes. Counseling: I had a detailed discussion with kevin the patient and/or guardian regarding: the historical points, exam findings, and any diagnostic results supporting the discharge/admit diagnosis, lab results, radiology results, the need for outpatient follow up, to return to the emergency department if symptoms worsen or persist or if there are any questions or concerns that arise at home. ED course: HEART SCORE = 1, D-DIMER NEGATIVE. Pain resolved in the ED. Patient is advised to follow up with pcp. Patient understood and agrees with the plan of care. . 02/07 11:27 Order name: Basic Metabolic Panel; Complete Time: 12:25 [facility] 02/07 11:27 Order name: CBC with Diff; Complete Time: 12:14 [facility] 02/07 11:27 Order name: LFT's; Complete Time: 12:25 [facility] 02/07 11:27 Order name: Magnesium; Complete Time: 12:25 [facility] 02/07 11:27 Order name: NT PRO-BNP; Complete Time: 12:25 [facility] 02/07 11:27 Order name: PT-INR; Complete Time: 12:14 [facility] 02/07 11:27 Order name: Troponin (emerg Dept Use Only); Complete Time: 12:25 [facility] 02/07 11:27 Order name: XRAY Chest (1 view); Complete Time: 12:14 [facility] 02/07 11:27 Order name: EKG; Complete Time: 11:28 [facility] 02/07 11:27 Order name: Cardiac monitoring; Complete Time: 11:40 [facility] 02/07 11:27 Order name: Lipase; Complete Time: 12:25 [facility] 02/07 12:28 Order name: D-Dimer; Complete Time: 13:15 [facility] 02/07 12:53 Order name: Urine Dipstick--Ancillary (enter results); Complete Time: 13:06 [facility] 02/07 12:53 Order name: Urine --Ancillary (enter results); Complete Time: 13:06 [facility] 02/07 11:27 Order name: EKG - Nurse/Tech; Complete Time: 11:49 [facility] 02/07 11:27 Order name: IV Saline Lock; Complete Time: 11:40 [facility] 02/07 11:27 Order name: Labs collected and sent; Complete Time: 11:49 [facility] 02/07 11:27 Order name: O2 Per Protocol; Complete Time: 11:40 [facility] 02/07 11:27 Order name: O2 Sat Monitoring; Complete Time: 11:40 [facility] 02/07 11:27 Order name: Urine Dipstick-Ancillary (obtain specimen); Complete Time: 12:44 [facility] 02/07 11:27 Order name: Urine Test (obtain specimen); Complete Time: 12:44 jmm EC:16 Rate is 71 beats/min. Rhythm is regular. QRS [place] is Normal. HI interval is normal. QRS jmm interval is normal. QT interval is normal. T waves are Normal. No ST changes noted. Reviewed by me. Administered Medications: No medications were administered Disposition: 15:28 Co-signature as Attending Physician, Jatinder Rowell MD I agree with the assessment and kdr plan of care. Disposition: 02/08/20 13:20 Discharged to Home. Impression: Chest pain, unspecified. - Condition is Stable. - Discharge Instructions: Nonspecific Chest Pain. - Medication Reconciliation Form, Thank You Letter, Antibiotic Education, Prescription Opioid Use form. - Follow up: Private Physician; When: 2 - 3 days; Reason: Recheck today's complaints, Continuance of care, Re-evaluation by your physician. Signatures: Dispatcher [employer] EDJatinder Lee MD MD kdr Mickail, Joel, PA PA Gumaro Courtney, RN RN bp Corrections: (The following items were deleted from the chart) 13:33 13:20 02/08/2020 13:20 Discharged to Home. Impression: Chest pain, unspecified. bp Condition is Stable. Forms are Medication Reconciliation Form, Thank You Letter, Antibiotic Education, Prescription Opioid Use. Follow up: Private Physician; When: 2 - 3 days; Reason: Recheck today's complaints, Continuance of care, Re-evaluation by your physician. kevin
--- NOTE | 2020-02-08 13:20 | ER ---
Nurse's Notes [facility] Name: Aurelia Santacruz Age: 29 yrs Sex: Female : 1990 Arrival Date: 02/08/2020 Time: 11:16 Bed 16 Private MD: Diagnosis: Chest pain, unspecified Presentation: 02/07 11:19 Chief complaint: EMS states: CHEST PAIN x 30 MIN. Coronavirus screen: Proceed with bp normal triage. Ebola Screen: No symptoms or risks identified at this time. Initial Sepsis Screen: Does the patient meet any 2 criteria? No. Patient's initial sepsis screen is negative. Does the patient have a suspected source of infection? No. Patient's initial sepsis screen is negative. Risk Assessment: Do you want to hurt yourself or someone else? Patient reports no desire to harm self or others. Onset of symptoms was February 08, 2020 at 10:30. Care prior to arrival: Medication(s) given: ASA, 81 mg, x 4, Nitroglycerin, 0.4 mg SL x 1, IV initiated. 20 GA, in the left antecubital area. 11:19 Method Of Arrival: EMS: [facility] bp 11:19 Acuity: CHIRAG 3 bp Triage Assessment: 11:20 General: Appears in no apparent distress. comfortable, Behavior is cooperative, bp appropriate for age, anxious. Pain: Complains of pain in chest. EENT: No deficits noted. Neuro: No deficits noted. Cardiovascular: Rhythm is sinus rhythm. Respiratory: No deficits noted. GI: No signs and/or symptoms were reported involving the gastrointestinal system. : No signs and/or symptoms were reported regarding the genitourinary system. Derm: No deficits noted. Musculoskeletal: No deficits noted. 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 - Social history:: Smoking status: Patient reports the use of cigarette tobacco products, smokes one pack cigarettes per day. Screenin:20 Abuse screen: Denies threats or abuse. Denies injuries from another. Nutritional bp screening: No deficits noted. Tuberculosis screening: No symptoms or risk factors identified. Fall Risk None identified. Assessment: 11:20 General: SEE TRIAGE NOTE. bp 12:51 Reassessment: ALL CURRENT ORDERS COMPLETED, NO ACUTE S/S AT THIS TIME. bp 13:25 Reassessment: PT D/C HOME AMBULATORY, DX WITH NONSPECIFIC CHEST PAIN. bp Vital Signs: 11:19 BP 128 / 85; Pulse 86; Resp 14; Temp 98; Pulse Ox 98% ; Weight 108.86 kg; Height 5 ft. bp 2 in. (157.48 cm); 12:50 BP 121 / 83; Pulse 68; Resp 12; Pulse Ox 100% ; bp 13:23 BP 136 / 87; Pulse 84; Resp 16; Pulse Ox 100% ; bp 11:19 Body Mass Index 43.90 (108.86 kg, 157.48 cm) bp ED Course: 11:16 Patient arrived in ED. em1 11:18 Gumaro Galvan, RN is Primary Nurse. bp 11:20 Triage completed. bp 11:20 Patient has correct armband on for positive identification. Bed in low position. Call bp light in reach. Side rails up X2. 11:20 Maintain EMS IV. Dressing intact. Good blood return noted. Site clean \T\ dry. Gauge \T\ bp site: 20 G LEFT AC. 11:21 Arm band placed on. bp 11:22 Kirk Pearson PA is PHCP. [facility] 11:22 Jatinder Rowell MD is Attending Physician. jm 11:45 XRAY Chest (1 view) In Process Unspecified. EDMS 11:51 Initial lab(s) drawn, by ks, sent to lab. ca1 13:25 No provider procedures requiring assistance completed. IV discontinued, intact, bp bleeding controlled, No redness/swelling at site. Pressure dressing applied. Administered Medications: No medications were administered Outcome: 13:20 Discharge ordered by . jmm 13:25 Discharged to home ambulatory. bp 13:25 Condition: stable 13:25 Discharge instructions given to patient, Instructed on discharge instructions, follow up and referral plans. Demonstrated understanding of instructions, follow-up care. 13:33 Patient left the ED. bp Signatures: Dispatcher [employer] EDMS Kirk Pearson PA PA jmm Martinez, Eric em1 Gumaro Galvan, RN RN bp AcobLissy RN RN ca1
[2020-02-08 13:40] VITALS: TEMP 98
[2020-02-08 13:41] VITALS: O2SAT 100
[2020-02-08 13:42] VITALS: BP 136/87
--- NOTE | 2020-02-08 16:28 | EKG ---
Test Date: 2020-02-08 Test Time: 11:51:05 Tooth Cutter Contact Wheel: SUNITHA MEASUREMENT RESULTS: Intervals: Rate: 71 CT: 168 QRSD: 84 QT: 382 QTc: 415 [place]: P: 19 CT: 168 QRS: 39 T: 27 INTERPRETIVE STATEMENTS: Normal sinus rhythm with sinus arrhythmia Normal ECG Compared to ECG 08/09/2009 16:12:33 Sinus tachycardia no longer present Electronically Signed On 02-08-20 16:27:23 CDT by Pedro So
== END 2020-02-08 13:33 | disposition home or self-care (01) ==
LOC: ER 11:14
DX: R07.9 Chest pain, unspecified (principal); F17.210 Nicotine dependence, cigarettes, uncomplicated; Z88.5 Allergy status to narcotic agent; Z87.442 Personal history of urinary calculi
CPT/HCPCS: 36415; 71045; 80048; 80076; 81003; 81025; 83690; 83735; 83880; 84484; 85025; 85379; 85610; 93005; 99284

== ENCOUNTER 2020-09-25 10:22 | Emergency (ER) | payer SELFPAY ==
--- OUTSIDE RECORDS SUMMARY | 2020-09-25 10:29 | XMS REPORT | Continuity of Care Document ---
:[address] [facility] t Address [address] [place] [address] [address]. [address] [place] [address] Care Team Providers Name Role Phone Unavailable Unavailable Unavailable Problems This patient has no known problems. Allergies, Adverse Reactions, Alerts This patient has no known allergies or adverse reactions. Medications This patient has no known medications. Procedures This patient has no known procedures. Results This patient has no known results.
[2020-09-25 12:43] LABS: SARS-COV-2 RT PCR POSITIVE (NEGATIVE)
--- NOTE | 2020-09-25 13:12 | ER ---
Nurse's Notes [facility] Name: Aurelia Santacruz Age: 29 yrs Sex: Female : 1990 Arrival Date: 09/25/2020 Time: 10:25 Bed DIS1 Private MD: Diagnosis: Coronavirus infection, unspecified Presentation: 09/25 10:42 Chief complaint: Patient states: Symptoms started yesterday, Cough, runny nose. Today, ca1 Nausea and diarrhea, headache. Denies fever. Coronavirus screen: Client denies travel out of the [place] in the last 14 days. cough unrelated to allergies, diarrhea, headache, nausea, Client presents with at least one sign or symptom that may indicate coronavirus-19. Standard/surgical mask placed on the client. Provider contacted for isolation considerations. Ebola Screen: Patient negative for fever greater than or equal to 101.5 degrees Fahrenheit, and additional compatible Ebola Virus Disease symptoms Patient denies exposure to infectious person. Patient denies travel to an Ebola-affected area in the 21 days before illness onset. No symptoms or risks identified at this time. Initial Sepsis Screen: Does the patient meet any 2 criteria? No. Patient's initial sepsis screen is negative. Does the patient have a suspected source of infection? No. Patient's initial sepsis screen is negative. Risk Assessment: Do you want to hurt yourself or someone else? Patient reports no desire to harm self or others. Onset of symptoms was September 24, 2020. 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 - Social history:: Smoking status: Patient reports the use of cigarette tobacco products, smokes one-half pack cigarettes per day. Screenin:00 Abuse screen: Denies threats or abuse. Denies injuries from another. Nutritional ca1 screening: No deficits noted. Tuberculosis screening: No symptoms or risk factors identified. Fall Risk None identified. Assessment: 11:00 General: Appears in no apparent distress. comfortable, Behavior is calm, cooperative, ca1 appropriate for age. General: Reports feeling ill for 1-2 days. Pain: Denies pain. Neuro: Level of Consciousness is awake, alert, obeys commands, Oriented to person, place, time, situation, Reports headache. Respiratory: Reports cough that is Airway is patent Respiratory effort is even, unlabored, Respiratory pattern is regular, symmetrical, Breath sounds are clear bilaterally. EENT: Throat is clear is pink has enlarged tonsils bilaterally Reports nasal congestion. Derm: Skin is intact, is healthy with good turgor, Skin is pink, warm \T\ dry. Musculoskeletal: Circulation, motion, and sensation intact. Capillary refill < 3 seconds. 11:00 GI: Abdomen is round non-distended, obese, Bowel sounds present X 4 quads. Abd is soft ca1 and non tender X 4 quads. Reports diarrhea, nausea. 12:00 General: Appears in no apparent distress. comfortable, Behavior is calm, cooperative, zb appropriate for age, Reports feeling ill for 1-2 days, fatigue for 1-2 days. Pain: Denies pain. Neuro: Level of Consciousness is awake, alert, obeys commands, Oriented to person, place, time, situation. Respiratory: Reports cough that is Airway is patent Respiratory effort is even, unlabored, Respiratory pattern is regular, symmetrical, Breath sounds are clear bilaterally. GI: Abdomen is round non-distended, obese, Bowel sounds present X 4 quads. Abd is soft and non tender X 4 quads. Reports diarrhea, nausea. : No signs and/or symptoms were reported regarding the genitourinary system. EENT: Throat is clear is pink bilaterally. Derm: Skin is intact, is healthy with good turgor, Skin is normal. Musculoskeletal: Circulation, motion, and sensation intact. Capillary refill < 3 seconds, in bilateral fingers. Range of motion: intact in all extremities. 14:00 Reassessment: Patient is alert, oriented x 3, equal unlabored respirations, skin aa5 warm/dry/pink. Vital Signs: 10:42 BP 133 / 57; Pulse 92; Resp 16 S; Temp 97(TE); Pulse Ox 99% on R/A; Weight 104.33 kg ca1 (R); Height 5 ft. 2 in. (157.48 cm) (R); Pain 5/10; 10:42 Body Mass Index 42.07 (104.33 kg, 157.48 cm) ca1 ED Course: 10:25 Patient arrived in ED. as 10:44 Triage completed. ca1 10:45 Arm band placed on right wrist. ca1 10:54 Noble Llamas MD is Attending Physician. [facility] 11:00 Patient has correct armband on for positive identification. Bed in low position. Call ca1 light in reach. Side rails up X 1. Pulse ox on. NIBP on. 11:17 Kirk Pearson PA is PHCP. kevin 11:52 Lissy Alamo, RN is Primary Nurse. ca1 14:00 No provider procedures requiring assistance completed. Patient did not have IV access aa5 during this emergency room visit. Administered Medications: No medications were administered Outcome: 13:12 Discharge ordered by . kevin 14:00 Discharged to home ambulatory. aa5 14:00 Condition: stable 14:00 Discharge instructions given to patient, Instructed on discharge instructions, follow up and referral plans. medication usage, Demonstrated understanding of instructions, follow-up care, medications, Prescriptions given X 3. 14:15 Patient left the ED. aa5 Signatures: Noble Llamas MD MD cha Mickail, Joel, PA PA jmm Martinez, Amelia as Calderon, Audri RN RN aa5 Lissy Alamo, DOORTHY RN Jody Choudhary RN RN zb
--- NOTE | 2020-09-25 13:13 | EDPHYS ---
Physician Documentation [facility] Name: Aurelia Santacruz Age: 29 yrs Sex: Female : 1990 Arrival Date: 09/25/2020 Time: 10:25 Bed DIS1 Private MD: ED Physician Noble Llamas HPI: 09/25 12:16 This 29 yrs old Female presents to ER via Ambulatory with complaints of jmm Headache, Cough, Runny Nose. 12:16 The patient or guardian reports cough. Onset: The symptoms/episode began/occurred jmm gradually, 1 day(s) ago. Modifying factors: The symptoms are alleviated by nothing. the symptoms are aggravated by nothing. Associated signs and symptoms: Pertinent positives: rhinorrhea, Pertinent negatives: fever. This is a 29 year old female with a history of kidney stones that presents to the ED with complaints of cough, congestion beginning yesterday. Denies fever. . 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 - Social history:: Smoking status: Patient reports the use of cigarette tobacco products, smokes one-half pack cigarettes per day. ROS: 12:16 Cardiovascular: Negative for chest pain, palpitations, and edema. jmm 12:16 Constitutional: Positive for body aches. 12:16 Respiratory: Positive for cough. 12:16 All other systems are negative. Exam: 12:16 Constitutional: This is a well developed, well nourished patient who is awake, alert, jmm and in no acute distress. Head/Face: atraumatic. Eyes: EOMI, no conjunctival erythema appreciated ENT: Moist Mucus Membranes Neck: Trachea midline, Supple Chest/axilla: Normal chest wall appearance and motion. Cardiovascular: Regular rate and rhythm. No edema appreciated Respiratory: Normal respirations, no respiratory distress appreciated Abdomen/GI: Non distended, soft Back: Normal ROM Skin: General appearance color normal MS/ Extremity: Moves all extremities, no obvious deformities appreciated, no edema noted to the lower extremities Neuro: Awake and alert, normal gait Psych: Behavior is normal, Mood is normal, Patient is cooperative and pleasant Vital Signs: 10:42 BP 133 / 57; Pulse 92; Resp 16 S; Temp 97(TE); Pulse Ox 99% on R/A; Weight 104.33 kg ca1 (R); Height 5 ft. 2 in. (157.48 cm) (R); Pain 5/10; 10:42 Body Mass Index 42.07 (104.33 kg, 157.48 cm) ca1 MDM: 10:54 Patient medically screened. [facility] 13:10 Data reviewed: vital signs, nurses notes. Counseling: I had a detailed discussion with kevin the patient and/or guardian regarding: the historical points, exam findings, and any diagnostic results supporting the discharge/admit diagnosis, lab results, the need for outpatient follow up, to return to the emergency department if symptoms worsen or persist or if there are any questions or concerns that arise at home. ED course: Patient is alert and non toxic in appearance in the ED. No signs of resp distress. patient given strict return precautions. Patient understood and agrees with the plan of care. . 09/25 11:15 Order name: Strep; Complete Time: 12:18 ca1 09/25 12:12 Order name: Throat Culture EDMS 09/25 12:43 Order name: COVID-19/FLU A+B; Complete Time: 12:45 EDMS Administered Medications: No medications were administered Disposition: 09/26 06:28 Co-signature as Attending Physician, Noble Llamas MD I agree with the assessment and [facility] plan of care. Disposition: 09/25/20 13:12 Discharged to Home. Impression: Coronavirus infection, unspecified. - Condition is Stable. - Discharge Instructions: COVID-19. - Prescriptions for ivermectin 3 mg Oral tablet - take 6 tablet by ORAL route as directed one dose now, next dose in 48 hrs; 12 tablet. Prednisone 20 mg Oral Tablet - take 3 tablet by ORAL route once daily for 5 days; 15 tablet. Albuterol Sulfate 90 mcg/actuation - inhale 1-2 puff by INHALATION route every 4-6 hours; 1 Inhaler. - Medication Reconciliation Form, Thank You Letter, Antibiotic Education, Prescription Opioid Use, Work release form form. - Follow up: Private Physician; When: 2 - 3 days; Reason: Recheck today's complaints, Continuance of care, Re-evaluation by your physician. Signatures: Dispatcher [employer] EDOH Noble Llamas MD MD cha Mickail, Joel, PA PA jmm Calderon, Audri RN RN aa5 Lissy Alamo RN RN ca1 Corrections: (The following items were deleted from the chart) 09/25 11:51 11:15 CORONAVIRUS+MR.LAB.BRZ ordered. EDOH EDOH 11:52 11:15 Influenza Screen (A \T\ B)+BA.LAB.BRZ ordered. EDOH EDOH 14:15 13:12 09/25/2020 13:12 Discharged to Home. Impression: Coronavirus infection, aa5 unspecified. Condition is Stable. Forms are Medication Reconciliation Form, Thank You Letter, Antibiotic Education, Prescription Opioid Use. Follow up: Private Physician; When: 2 - 3 days; Reason: Recheck today's complaints, Continuance of care, Re-evaluation by your physician. kevin
[2020-09-25 14:28] VITALS: BP 133/57; TEMP 97; O2SAT 99
== END 2020-09-25 14:15 | disposition home or self-care (01) ==
LOC: ER 10:22
DX: U07.1 COVID-19 (principal); F17.210 Nicotine dependence, cigarettes, uncomplicated; Z88.5 Allergy status to narcotic agent; Z87.442 Personal history of urinary calculi
CPT/HCPCS: 0240U; 87070; 87081; 99283

== ENCOUNTER 2021-05-19 11:11 | Emergency (ER) | payer SELFPAY ==
--- OUTSIDE RECORDS SUMMARY | 2021-05-19 11:14 | XMS REPORT | Continuity of Care Document ---
:1990 Author Organization [facility] t Address [address] [place] [address] [address] [place] [id number] Care Team Providers Name Role Phone Unavailable Unavailable Unavailable Problems This patient has no known problems. Allergies, Adverse Reactions, Alerts This patient has no known allergies or adverse reactions. Medications This patient has no known medications. Procedures This patient has no known procedures. Results This patient has no known results.
[2021-05-19] MEDS ORDERED: ONDANSETRON 4 MG (ODT) TAB ONE (12:14)
--- NOTE | 2021-05-19 12:53 | RAD REPORT ---
EXAM DESCRIPTION: RAD - Chest Single View - 05/19/2021 12:43 pm CLINICAL HISTORY: Cough;Chest pain Chest pain. COMPARISON: Chest Single View dated 02/08/2020; CHEST PA AND LAT 2 VIEW dated 08/09/2009 FINDINGS: Portable technique limits examination quality. The lungs are grossly clear. The heart is normal in size. No displaced fractures. IMPRESSION: No acute intrathoracic process suspected.
[2021-05-19 13:23] LABS: SARS-COV-2 RT PCR NEGATIVE (NEGATIVE)
--- NOTE | 2021-05-19 14:13 | EDPHYS ---
Physician Documentation [facility] Name: Aurelia Santacruz Age: 30 yrs Sex: Female : 1990 Arrival Date: 05/19/2021 Time: 11:13 Bed 27 Private MD: ED Physician Gamal Downs HPI: 05/19 11:31 This 30 yrs old Female presents to ER via Ambulatory with complaints of Chest rn Pain, Cough. 11:32 The patient or guardian reports cough, that is intermittent, described as mild, with no rn sputum. Onset: The symptoms/episode began/occurred 2 day(s) ago. Severity of symptoms: At their worst the symptoms were mild, in the emergency department the symptoms are unchanged. Modifying factors: The symptoms are alleviated by nothing, the symptoms are aggravated by nothing. Associated signs and symptoms: Pertinent positives: diarrhea, fever, rhinorrhea, sore throat, vomiting, Pertinent negatives:. The patient has not experienced similar symptoms in the past. The patient has not recently seen a physician. Patient reports 2 days of subjective fever, muscle aches, fatigue, headache, cough and nasal congestion. States lost her sense of taste. Also having diarrhea and nausea.. Historical: - Allergies: 11:18 Vicodin; hb - PMHx: 11:18 Kidney stones; hb - Immunization history:: Client reports having NOT received the Covid vaccine. - Social history:: Smoking status: Patient reports the use of cigarette tobacco products, smokes one-half pack cigarettes per day. - Family history:: not pertinent. - Hospitalizations: : No recent hospitalization is reported. ROS: 11:32 Constitutional: Positive for fever and chills Eyes: Negative for injury, pain, redness, rn and discharge, ENT: Positive for nasal congestion Cardiovascular: Negative for chest pain, palpitations, and edema, Respiratory: Positive for cough, negative for shortness of breath Abdomen/GI: Positive for nausea and diarrhea Back: Negative for injury and pain, : Negative for injury, bleeding, discharge, and swelling, MS/Extremity: Negative for injury and deformity, Skin: Negative for injury, rash, and discoloration, Neuro: Positive for headache and weakness Exam: 11:32 Constitutional: This is a well developed, well nourished patient who is awake, alert, rn and in no acute distress. Head/Face: Normocephalic, atraumatic. Eyes: Periorbital areas with no swelling, redness, or edema. ENT: No stridor Cardiovascular: Regular rate and rhythm. No pulse deficits. Respiratory: Speaking full sentences, unlabored. No increased work of breathing, no retractions or nasal flaring. Abdomen/GI: Soft, non-tender Skin: Warm, dry MS/ Extremity: Pulses equal, no cyanosis. Neuro: Awake and alert, GCS 15 Vital Signs: 11:16 BP 136 / 70; Pulse 83; Resp 20; Temp 97.5; Pulse Ox 100% on R/A; Weight 108.86 kg; hb Height 5 ft. 2 in. (157.48 cm); Pain 8/10; 11:31 BP 130 / 72; Pulse 80; Resp 18; Pulse Ox 100% on R/A; vg1 12:45 BP 130 / 69; Pulse 72; Resp 20; Pulse Ox 100% ; vg1 13:15 BP 126 / 75; Pulse 70; Resp 20; Pulse Ox 100% ; kg 13:45 BP 115 / 63; Pulse 71; Resp 20; Pulse Ox 99% on R/A; kg 14:15 BP 126 / 74; Pulse 66; Resp 20; Pulse Ox 99% ; kg 11:16 Body Mass Index 43.90 (108.86 kg, 157.48 cm) hb MDM: 11:19 Patient medically screened. rn 14:11 Differential Diagnosis: Bronchitis Influenza Upper Respiratory Infection Viral Syndrome rn Pneumonia. Data reviewed: vital signs, nurses notes, lab test result(s), radiologic studies, plain films, and as a result, I will discharge patient. Data interpreted: cardiac monitor: rate is 72 beats/min, rhythm is normal sinus rhythm, regular, with no ectopy, Interpretation: normal rate, normal rhythm, Pulse oximetry: on room air is 100 %. Interpretation: normal. Counseling: I had a detailed discussion with the patient and/or guardian regarding: the historical points, exam findings, and any diagnostic results supporting the discharge/admit diagnosis, lab results, radiology results, the need for outpatient follow up, to return to the emergency department if symptoms worsen or persist or if there are any questions or concerns that arise at home. Response to treatment: the patient's symptoms have mildly improved after treatment, and as a result, I will discharge patient. Special discussion: I discussed with the patient/guardian in detail that at this point there is no indication for admission to the hospital. It is understood, however, that if the symptoms persist or worsen the patient needs to return immediately for re-evaluation. 05/19 11:26 Order name: Flu rn 05/19 11:26 Order name: XRAY Chest (1 view); Complete Time: 13:00 rn 05/19 11:26 Order name: Strep; Complete Time: 14:10 rn 05/19 13:14 Order name: Throat Culture EDMS 05/19 13:23 Order name: COVID-19/FLU A+B; Complete Time: 14:10 EDMS Administered Medications: 11:54 Drug: Zofran (Ondansetron) 4 mg Route: PO; vg1 12:56 Follow up: Response: Nausea is decreased vg1 Disposition Summary: 05/19/21 14:12 Discharge Ordered Location: Home rn Problem: new rn Symptoms: have improved rn Condition: Stable rn Diagnosis - Viral syndrome rn - Cough rn - Vomiting rn - Diarrhea, unspecified rn Followup: rn - With: Private Physician - When: As needed - Reason: Recheck today's complaints, Re-evaluation by your physician Forms: - Medication Reconciliation Form rn - Thank You Letter rn - Antibiotic rn progressive care unit - Prescription Opioid Use rn Signatures: Dispatcher [employer] EDMS Gamal Downs MD MD rn Baxter, Heather, RN RN hb Garcia, Victoria RN RN vg1 Corrections: (The following items were deleted from the chart) 12:41 11:27 CORONAVIRUS+MR.LAB.BRZ ordered. EDMN EDMN
--- NOTE | 2021-05-19 14:13 | ER ---
Nurse's Notes [facility] Name: Aurelia Santacruz Age: 30 yrs Sex: Female : 1990 Arrival Date: 05/19/2021 Time: 11:13 Bed 27 Private MD: Diagnosis: Viral syndrome;Cough;Vomiting;Diarrhea, unspecified Presentation: 05/19 11:16 Chief complaint: Sore throat and runny nose since yesterday, SOB, pain with breathing, hb ,and N/V/D this morning. Coronavirus screen: Client presents with at least one sign or symptom that may indicate coronavirus-19. Standard/surgical mask placed on the client. Provider contacted for isolation considerations. Ebola Screen: No symptoms or risks identified at this time. Risk Assessment: Do you want to hurt yourself or someone else? Patient reports no desire to harm self or others. Onset of symptoms was May 18, 2021. 11:16 Method Of Arrival: Ambulatory hb 11:16 Acuity: CHIRAG 3 hb 14:28 Initial Sepsis Screen: Does the patient meet any 2 criteria? No. Patient's initial kg sepsis screen is negative. Does the patient have a suspected source of infection? No. Patient's initial sepsis screen is negative. Historical: - Allergies: 11:18 Vicodin; hb - PMHx: 11:18 Kidney stones; hb - Immunization history:: Client reports having NOT received the Covid vaccine. - Social history:: Smoking status: Patient reports the use of cigarette tobacco products, smokes one-half pack cigarettes per day. - Family history:: not pertinent. - Hospitalizations: : No recent hospitalization is reported. Screenin:31 Abuse screen: Denies threats or abuse. Nutritional screening: No deficits noted. vg1 Tuberculosis screening: No symptoms or risk factors identified. Fall Risk No fall in past 12 months (0 pts). No secondary diagnosis (0 pts). No IV (0 pts). Ambulatory Aid- None/Bed Rest/Nurse Assist (0 pts). Gait- Normal/Bed Rest/Wheelchair (0 pts) Mental Status- Oriented to own ability (0 pts). Total Boraj Fall Scale indicates No Risk (0-24 pts). Assessment: 11:30 General: Appears in no apparent distress. comfortable, Behavior is calm, cooperative. vg1 Pain: Complains of pain in head and chest Pain does not radiate. Pain currently is 8 out of 10 on a pain scale. Pain began 2-3 days ago. Neuro: Level of Consciousness is awake, alert, obeys commands, Oriented to person, place, time, situation, Reports headache. Cardiovascular: Patient's skin is warm and dry. Respiratory: Airway is patent Respiratory effort is even, unlabored, Breath sounds are clear bilaterally. GI: Reports diarrhea, nausea, vomiting, since last night. : No signs and/or symptoms were reported regarding the genitourinary system. EENT: No signs and/or symptoms were reported regarding the EENT system. Derm: Skin is intact, is healthy with good turgor. Musculoskeletal: Circulation, motion, and sensation intact. 12:30 Reassessment: Patient appears in no apparent distress at this time. Patient and/or vg1 family updated on plan of care and expected duration. Pain level reassessed. Patient is alert, oriented x 3, equal unlabored respirations, skin warm/dry/pink. Pt stated nausea has subsided. Vital Signs: 11:16 BP 136 / 70; Pulse 83; Resp 20; Temp 97.5; Pulse Ox 100% on R/A; Weight 108.86 kg; hb Height 5 ft. 2 in. (157.48 cm); Pain 8/10; 11:31 BP 130 / 72; Pulse 80; Resp 18; Pulse Ox 100% on R/A; vg1 12:45 BP 130 / 69; Pulse 72; Resp 20; Pulse Ox 100% ; vg1 13:15 BP 126 / 75; Pulse 70; Resp 20; Pulse Ox 100% ; kg 13:45 BP 115 / 63; Pulse 71; Resp 20; Pulse Ox 99% on R/A; kg 14:15 BP 126 / 74; Pulse 66; Resp 20; Pulse Ox 99% ; kg 11:16 Body Mass Index 43.90 (108.86 kg, 157.48 cm) ED Course: 11:13 Patient arrived in ED. rg4 11:18 Triage completed. hb 11:18 Arm band placed on. hb 11:19 Gamal Downs MD is Attending Physician. rn 11:21 Jaqueline Buckley, RN is Primary Nurse. vg1 11:32 Patient has correct armband on for positive identification. Bed in low position. Call vg1 light in reach. Side rails up X 1. 11:32 Pulse ox on. NIBP on. vg1 11:32 No provider procedures requiring assistance completed. Patient did not have IV access vg1 during this emergency room visit. Patient maintains SpO2 saturation greater than 95% on room air. 11:54 COVID swab sent to lab. Flu and/or RSV swab sent to lab. Strep swab sent to lab. vg1 12:43 XRAY Chest (1 view) In Process Unspecified. EDMS Administered Medications: 11:54 Drug: Zofran (Ondansetron) 4 mg Route: PO; vg1 12:56 Follow up: Response: Nausea is decreased vg1 Outcome: 14:12 Discharge ordered by . rn 14:28 Discharged to home ambulatory. kg 14:28 Condition: good 14:28 Discharge instructions given to patient, Instructed on discharge instructions, follow up and referral plans. Demonstrated understanding of instructions, follow-up care. 14:29 Patient left the ED. kg Signatures: Dispatcher [employer] EDMS Gamal Downs MD MD rn Baxter, Heather RN Lizz Hendricks rg4 Jaqueline Buckley RN RN vg1 Merly Arnold RN RN kg Corrections: (The following items were deleted from the chart) 11:32 11:30 Respiratory: Airway is patent Respiratory effort is even, unlabored, vg1 vg1
[2021-05-19 14:40] VITALS: TEMP 97.5
[2021-05-19 14:46] VITALS: O2SAT 99
[2021-05-19 14:47] VITALS: BP 126/74
== END 2021-05-19 14:29 | disposition home or self-care (01) ==
LOC: ER 11:11
DX: B34.9 Viral infection, unspecified (principal); R11.10 Vomiting, unspecified; R19.7 Diarrhea, unspecified; F17.210 Nicotine dependence, cigarettes, uncomplicated; Z20.822 Contact with and (suspected) exposure to COVID-19; Z88.5 Allergy status to narcotic agent
CPT/HCPCS: 0240U; 71045; 87070; 87081; 99284

== ENCOUNTER 2021-11-03 15:11 | Emergency (ER) | payer SELFPAY ==
--- OUTSIDE RECORDS SUMMARY | 2021-11-03 15:12 | XMS REPORT | Continuity of Care Document ---
:1990 Author Organization [facility] t Address [address] [place] [address] Dr. Rea [address] [place] [id number] Care Team Providers Name Role Phone Unavailable Unavailable Unavailable Problems This patient has no known problems. Allergies, Adverse Reactions, Alerts This patient has no known allergies or adverse reactions. Medications This patient has no known medications. Procedures This patient has no known procedures. Results This patient has no known results.
[2021-11-03 16:33] LABS: SARS-COV-2 RT PCR NEGATIVE (NEGATIVE)
[2021-11-03] MEDS ORDERED: ACETAMINOPHEN 500 MG TAB ONE (16:47)
[2021-11-03] MEDS ORDERED: ONDANSETRON 4 MG/2 ML VIAL ONE (16:47)
[2021-11-03] MEDS ORDERED: NA CHLORIDE 0.9% 1,000 ML ONE (16:47)
--- NOTE | 2021-11-03 17:44 | EDPHYS ---
Physician Documentation [facility] Name: Aurelia Santacruz Age: 31 yrs Sex: Female : 1990 Arrival Date: 11/03/2021 Time: 15:12 Bed 6 Private MD: ED Physician Hieu Hunter HPI: 11/03 16:15 This 31 yrs old Female presents to ER via Ambulatory with complaints of Body aches, pm1 Headache. 16:15 The patient or guardian reports cough, with productive sputum, that is green, flu pm1 symptoms, myalgias, no appetite. Onset: The symptoms/episode began/occurred 3 day(s) ago. Severity of symptoms: in the emergency department the symptoms are unchanged. Modifying factors: The symptoms are alleviated by ibuprofen two days ago. Associated signs and symptoms: Pertinent positives: chest pain, with cough, earache, nausea, rhinorrhea, sore throat, abdominal pain, Pertinent negatives: diarrhea, fever, vomiting. The patient has not experienced similar symptoms in the past. The patient has not recently seen a physician. Patient's two son's positive for flu. 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 - Social history:: Smoking status: Patient reports the use of cigarette tobacco products, smokes one-half pack cigarettes per day. ROS: 16:15 Cardiovascular: Negative for chest pain, palpitations, and edema. pm1 16:15 Back: Negative for injury and pain, : Negative for injury, bleeding, discharge, and swelling, MS/Extremity: Negative for injury and deformity, Skin: Negative for injury, rash, and discoloration. 16:15 Constitutional: Positive for body aches, fever, Poor PO intake because of sore throat. 16:15 ENT: Positive for ear pain, sore throat, Negative for difficulty swallowing, difficulty handling secretions, hoarseness. 16:15 Respiratory: Positive for cough, with green sputum, Negative for shortness of breath. 16:15 Abdomen/GI: Positive for abdominal pain, nausea, Negative for vomiting, diarrhea. 16:15 Neuro: Positive for headache, Negative for numbness, tingling, weakness. 16:15 All other systems are negative. Exam: 16:15 Constitutional: This is a well developed, well nourished patient who is awake, alert, pm1 and in no acute distress. Head/Face: Normocephalic, atraumatic. 16:15 Back: No spinal tenderness. No costovertebral tenderness. Full range of motion. Skin: Warm, dry with normal turgor. Normal color with no rashes, no lesions, and no evidence of cellulitis. MS/ Extremity: Pulses equal, no cyanosis. Neurovascular intact. Full, normal range of motion. 16:15 Eyes: Exam is negative for acute changes, Periorbital structures: no acute changes, Extraocular movements: no acute changes, Conjunctiva: no acute changes, no injection, Sclera: no acute changes, icterus, is not appreciated. 16:15 ENT: Exam is negative for acute changes, Mouth: no acute changes, Lips: normal, moist, Oral mucosa: normal, pink and intact, moist. 16:15 Cardiovascular: Exam negative for acute changes, Rate: normal, Rhythm: regular, Pulses: no pulse deficits are appreciated. 16:15 Respiratory: Exam negative for acute changes, respiratory distress, shortness of breath, Breath sounds: are clear throughout. 16:15 Abdomen/GI: Inspection: obese Palpation: abdomen is soft and non-tender, in all quadrants. 16:15 Neuro: Exam negative for acute changes, Orientation: is normal, Mentation: is normal, Motor: is normal, moves all fours. Vital Signs: 15:30 BP 123 / 83; Pulse 120; Resp 20; Temp 101.9; Pulse Ox 98% ; Weight 108.86 kg; Height 5 ss7 ft. 2 in. (157.48 cm); 16:54 BP 128 / 77; Pulse 107; Resp 16; Temp 102.0(O); Pulse Ox 99% on R/A; ww 18:00 BP 124 / 68; Pulse 94; Resp 18; Temp 99.2(O); Pulse Ox 99% on R/A; ww 15:30 Body Mass Index 43.90 (108.86 kg, 157.48 cm) ss7 MDM: 16:10 Patient medically screened. pm1 17:40 Data reviewed: vital signs. Data interpreted: Pulse oximetry: on room air is 99 %. pm1 Interpretation: normal. Counseling: I had a detailed discussion with the patient and/or guardian regarding: the historical points, exam findings, and any diagnostic results supporting the discharge/admit diagnosis, lab results, the need for outpatient follow up, to return to the emergency department if symptoms worsen or persist or if there are any questions or concerns that arise at home, Patient reports improvement with IV fluids. Patient out of the window for treatment with tamiflu. 17:40 Differential Diagnosis: Influenza Pharyngitis Viral Syndrome Pneumonia Other covid, pm1 strep. 11/03 15:34 Order name: COVID-19/FLU A+B (Document "Date of Onset" if Symptomatic); Complete Time: cs9 17:09 11/03 16:15 Order name: Strep; Complete Time: 17:36 pm1 11/03 17:17 Order name: Throat Culture EDTX 11/03 16:15 Order name: IV Saline Lock; Complete Time: 16:41 pm1 Administered Medications: 16:52 Drug: NS 0.9% 1000 ml Route: IV; Rate: 1000 ml; Site: right antecubital; ww 16:52 Drug: Zofran (Ondansetron) 4 mg Route: IVP; Site: right antecubital; ww 16:52 Drug: Tylenol 1000 mg Route: PO; ww Disposition: 11/04 09:44 Co-signature as Attending Physician, Hieu Hunter MD I agree with the assessment and [facility] plan of care. Disposition Summary: 11/03/21 17:43 Discharge Ordered Location: Home pm1 Problem: new pm1 Symptoms: have improved pm1 Condition: Stable pm1 Diagnosis - Influenza due to identified novel influenza A virus pm1 Followup: pm1 - With: Emergency Department - When: As needed - Reason: Worsening of condition Followup: pm1 - With: Private Physician - When: 2 - 3 days - Reason: Recheck today's complaints, Continuance of care, Re-evaluation by your physician Discharge Instructions: - Discharge Summary Sheet pm1 - Influenza, Adult, [id number] pm1 Forms: - Medication Reconciliation Form pm1 - Thank You Letter pm1 - Work release form pm1 - Antibiotic Education pm1 - Prescription Opioid Use pm1 Prescriptions: - ondansetron 4 mg Oral tablet,disintegrating - place 1 tablet by TRANSLINGUAL route every 8 hours As needed; 12 tablet; pm1 Refills: 0, Product Selection Permitted Signatures: Dispatcher [employer] Manuel Saleem NP DIRECTOR EMERGENCY DEPARTMENT pm1 Purnima Fernández RN RN ww Hieu Hunter MD MD [id number] Temi Elliott RN RN ss7
--- NOTE | 2021-11-03 17:44 | ER ---
Nurse's Notes [facility] Name: Aurelia Santacruz Age: 31 yrs Sex: Female : 1990 Arrival Date: 11/03/2021 Time: 15:12 Bed 6 Private MD: Diagnosis: Influenza due to identified novel influenza A virus Presentation: 11/03 15:28 Chief complaint: Patient states: Pt c/o sore throat, chest and abdominal pain, moreno that ss7 began two days. Kids have tested + for influenza 2 days ago. Coronavirus screen: Vaccine status: Patient reports being unvaccinated. Client denies travel out of the [place] in the last 14 days. Client presents with at least one sign or symptom that may indicate coronavirus-19. Standard/surgical mask placed on the client. Ebola Screen: Patient denies exposure to infectious person. Patient denies travel to an Ebola-affected area in the 21 days before illness onset. Initial Sepsis Screen: Does the patient meet any 2 criteria? Temp <36.0*C (96.8*F)) or > 38.3*C (100.9*F). HR > 90 bpm. Yes Does the patient have a suspected source of infection? No. Patient's initial sepsis screen is negative. Risk Assessment: Do you want to hurt yourself or someone else? Patient reports no desire to harm self or others. Onset of symptoms was October 31, 2021. 15:28 Method Of Arrival: Ambulatory ss7 15:28 Acuity: CHIRAG 3 ss7 Triage Assessment: 15:30 Headache History: The patient has had previous headaches. General: Appears in no ss7 apparent distress. comfortable, obese, Behavior is calm, cooperative, appropriate for age. 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 - Social history:: Smoking status: Patient reports the use of cigarette tobacco products, smokes one-half pack cigarettes per day. Screenin:40 Abuse screen: Denies threats or abuse. Denies injuries from another. Nutritional ww screening: No deficits noted. Tuberculosis screening: No symptoms or risk factors identified. Fall Risk None identified. Assessment: 16:40 General: Appears uncomfortable, Behavior is calm, cooperative. Pain: Complains of pain ww in generalized body aches. Neuro: Level of Consciousness is awake, alert, obeys commands, Oriented to person, place, time, situation, Speech is normal. Cardiovascular: Capillary refill < 3 seconds Patient's skin is warm and dry. Respiratory: Airway is patent Respiratory effort is even, unlabored, Respiratory pattern is regular, symmetrical. GI: Reports nausea. : EENT: Throat is reddened. Derm: Skin is intact, Skin is normal, Skin temperature is hot. 17:59 Reassessment: Patient appears in no apparent distress at this time. No changes from ww previously documented assessment. Patient is alert, oriented x 3, equal unlabored respirations, skin warm/dry/pink. Patient states feeling better. Vital Signs: 15:30 BP 123 / 83; Pulse 120; Resp 20; Temp 101.9; Pulse Ox 98% ; Weight 108.86 kg; Height 5 ss7 ft. 2 in. (157.48 cm); 16:54 BP 128 / 77; Pulse 107; Resp 16; Temp 102.0(O); Pulse Ox 99% on R/A; ww 18:00 BP 124 / 68; Pulse 94; Resp 18; Temp 99.2(O); Pulse Ox 99% on R/A; ww 15:30 Body Mass Index 43.90 (108.86 kg, 157.48 cm) ss7 ED Course: 15:12 Patient arrived in ED. ds1 15:30 Triage completed. ss7 15:30 Arm band placed on right wrist. ss7 15:37 COVID-19/FLU A+B (Document "Date of Onset" if Symptomatic) Sent. cs9 15:55 Manuel Valderrama NP is PHCP. pm1 15:55 Hieu Hunter MD is Attending Physician. pm1 16:40 Patient has correct armband on for positive identification. Bed in low position. Call ww light in reach. Side rails up X2. Pulse ox on. NIBP on. 16:40 Inserted saline lock: 20 gauge in right antecubital area, using aseptic technique. ww 17:59 Purnima Fernández, RN is Primary Nurse. ww 18:10 No provider procedures requiring assistance completed. intact, bleeding controlled, No ww redness/swelling at site. Pressure dressing applied. Administered Medications: 16:52 Drug: NS 0.9% 1000 ml Route: IV; Rate: 1000 ml; Site: right antecubital; ww 16:52 Drug: Zofran (Ondansetron) 4 mg Route: IVP; Site: right antecubital; ww 16:52 Drug: Tylenol 1000 mg Route: PO; ww Outcome: 17:43 Discharge ordered by MD. pm1 18:10 Discharged to home ambulatory. ww 18:10 Condition: stable 18:10 Discharge instructions given to patient, Instructed on discharge instructions, follow up and referral plans. medication usage, safety practices, Demonstrated understanding of instructions, follow-up care, medications, Prescriptions given X 1. 18:11 Patient left the ED. ww Signatures: Felecia North ds1 Manuel Valderrama NP [employer] pm1 Edna Colby cs9 Purnima Fernández RN RN Temi Dyson RN RN ss7
[2021-11-03 19:36] VITALS: O2SAT 99
[2021-11-03 19:38] VITALS: BP 124/68; TEMP 99.2
== END 2021-11-03 18:11 | disposition home or self-care (01) ==
LOC: ER 15:11
DX: J10.1 Influenza due to other identified influenza virus with other respiratory manifestations (principal); Z20.822 Contact with and (suspected) exposure to COVID-19
CPT/HCPCS: 0240U; 87070; 87081; 96374; 99284; J2405; J7030

== ENCOUNTER → 2023-10-19 | Emergency (ER) | payer OTHER ==
[~2023-10-19] MED LIST: ACETAMINOPHEN 500 MG TAB ONE
--- OUTSIDE RECORDS SUMMARY | 2023-10-19 10:25 | XMS REPORT | Continuity of Care Document ---
Author Name Unknown Address [address] [place] [address] [facility] thconnect Address [address] [place] [address] Care Team Providers Care Vp Sales Name Role Phone PCP, PATIENT DOES NOT HAVE A Primary Care Physic stephanie Unavailable KATHIE ROBLEDO Attending Clinician Unavailab KEE Alegria Attending Clinician Unavail able LIN LOZANO Attending Clinician Unavailable MITCHELL KEATING Attending Clinician Unavailable KYLEE ENGLISH Attending Clinician Unavailable [id number] Attending Clinician Unavailable MD OSMANY Attending Clinician Unavailab le Payers Payer Name Policy Type Policy Number Effective Date Expirati on Date Source AETNA MP [facility] ON/OFF 9 [id number] 2023 00:00:00 [facility] [id number] 2023 00:00:00 Problems Condition Name Condition Details Condition Category Status Onset Date Resolution Date Last Treatment Date Treating Clinician Comments Source Well adult exam Well adult exam Disease Active 05-15 00:00: 00 Miesha stevens Class 3 severe obesity without serious comorbidit y in adult Class 3 severe obesity without serious comorbidit y in adult Disease Active 05-15 00:00: 00 Miesha Murphy Externa rodney Allergies, Adverse Reactions, Alerts Allergy Name Allergy Type Status Severity Reaction(s) Onset Date Inactive Date Treating Clinician Comments Source NO KNOWN ALLERGIE S Drug Class Active [facility] Social History Social Habit Start Date Stop Date Quantity Comments Source Gender identity Glenny nic Lenz - External Sexual orientation K maria l Yoanna - External History of tobacco use Cigarette Smoker Miesha dueñas - External Alcohol Comment 2023-05-15 00:00:00 2023-05-15 00:00:00 every few months Miesha Lenz - External Cigarettes smoked current (pack per day) - Reported 2023-05-15 00:00:00 2023-05-15 00:00:00 Miesha Lenz - External Alcohol intake 2023-05-15 00:00:00 2023-05-15 00:00:00 .14 /d Miesha Lenz - External History of Social function 2023-05-15 00:00:00 2023-05-15 00:00:00 Miesha Lenz - External Sex Ass[birth year] At 1990 00:00:00 1990 00:00:00 Miesha Lenz - External Smoking Status Start Date Stop Date Source Smokes tobacco daily 2023-05-15 00:00:00 Miesha Lenz - External Medications Ordered Medication Name Filled Medication Name Start Date Stop Date Current Medication? Ordering Clinician Indication Dosage Frequency Signature (SIG) Comments Components Source Nicotine 7 MG/24HR transdermal PATCH 24 HR 05-15 00:00: 00 Yes [id number] 1{patch } Place 1 patch onto the skin every 24 hours. Miesha Lenz - Externa l Vital Signs Vital Name Observation Time Observation Value Comments S ource Systolic blood pressure 2023-05-15 14:47:00 132 mm[Hg] Miesha kobe ld - External Diastolic blood pressure 2023-05-15 14:47:00 72 mm[Hg] Miesha kobe ld - External Heart rate 2023-05-15 14:47:00 101 /min Anh Lenz - External Body temperature 2023-05-15 14:47:00 35.72 Janis Miesha chris - External Respiratory rate 2023-05-15 14:47:00 15 /min Miesha Lenz - External Body height 2023-05-15 14:47:00 157.5 cm Glenny Lenz - External Body weight 2023-05-15 14:47:00 129.729 kg Glenny ey Seybold - External BMI 2023-05-15 14:47:00 52.31 kg/m2 Glenny ey Seybold - External Encounters Start Date/Time End Date/Time Encounter Type Admission Type Attending [facility] Care Department Encounter ID Source 2023-10-15 08:48:03 2023-10-15 08:48:03 Outpatient SFA SFA [id number] Collin Smiley 2023-09-22 00:00:00 2023-09-22 00:00:00 Outpatient KATHIE ROBLEDO [id number] [facility] 2023-09-04 10:45:00 2023-09-04 10:45:00 Outpatient LIN LOZANO [id number] [facility] 2023-08-27 00:00:00 2023-08-27 00:00:00 Outpatient MITCHELL KEATING [id number] [facility] 2023-08-17 00:00:00 2023-08-17 00:00:00 Outpatient KATHIE ROBLEDO [id number] [facility] 2023-08-15 00:00:00 2023-08-15 00:00:00 Outpatient KATHIE ROBLEDO [id number] [facility] 2023-08-07 13:30:00 2023-08-07 13:30:00 Outpatient KYLEE ENGLISH [id number] [facility] 2023-07-26 00:00:00 2023-07-26 00:00:00 Outpatient KATHIE ROBLEDO [id number] [facility] 2023-07-14 14:30:00 2023-07-14 14:30:00 Outpatient KEE MAN [facility] [id number] [facility] 2023-06-28 00:00:00 2023-06-28 00:00:00 Outpatient [facility]ED[facility] [id number] [facility] 2023-06-23 10:00:00 2023-06-23 10:00:00 Outpatient KATHIE ROBLEDOSEY [id number] Miesha Lenz 2023-06-15 09:30:00 2023-06-15 09:30:00 Outpatient KATHIE ROBLEDO [facility] [id number] [facility] 2023-06-05 16:00:00 2023-06-05 16:00:00 Outpatient KYLEE ENGLISH [facility] [id number] [facility] 2023-05-19 00:00:00 2023-05-19 00:00:00 Outpatient KATHIE ROBLEDO MIESHA [id number] Miesha Lenz 2023-05-18 00:00:00 2023-05-18 00:00:00 Outpatient KATHIE ROBLEDO MIESHA [id number] [facility] 2023-05-15 10:30:00 2023-05-15 10:30:00 Outpatient LAB90 MIESHA HERNANDESSEY [id number] [facility] 2023-05-15 09:30:00 2023-05-15 09:30:00 Outpatient KATHIE ROBLEDO MIESHA [id number] [facility] 2023-05-15 00:00:00 2023-05-15 00:00:00 Outpatient MD MIESHA SOTO [id number] [facility] Results Test Description Test Time Test Comments Results Result Co mments Source TSH, THIRD [id number] 04:32:19* Test Item Value Reference Range Interpretation Comme nts TSH, THIRD GENERATION (test code = 2821) 0.808 UIU/ML 0.400-4.100 FSH + LH [id number] 04:32:19* Test Item Value Reference Range Interpretation Comme nts FOLLICLE STIM HORMONE (test code = 2700) 8.3 IU/L SEE BELOW EXPEC CLARY VALUES FOR FSH FOR FEMALES >17 YEARS FOLLICULAR 3.5-12.5 IU/L MID-CYCLE PEAK 4.7-21.5 IU/L LUTEAL PHASE 1.7-7.7 IU/L POSTMENOPAUSAL 25.8-134.8 IU/L LUTEINIZING HORMONE (test code = 2776) 5.5 IU/L SEE BELOW EXPEC CLARY VALUES FOR LH FOR FEMALES >17 YEARS MALES FEMALES >=18 YEARS 1.8-8.6 IU/L FOLLICULAR 2.4-12.6 IU/L MID-CYCLE PEAK 14.0-95.6 IU/L LUTEAL PHASE 1.0-11.4 IU/L POSTMENOPAUSAL 7.7-58.5 IU/L UNLESS OTHERWISE INDICATED, ALL TESTING PERFORMED AT [facility] [address] [place] [id number] [employer] SUPERVISOR: RUT ALMODOVAR M.D. CLIA NUMBER [id number] [facility] [place]. [id number] CBC W/AUTO DIFF WITH [id number] 04:07:49* Test Item Value Reference Range Interpretation Comme nts WBC (test code = 1001) 8.2 K/UL 3.5-11.0 RBC (test code = 1002) 3.77 M/UL 3.80-5.40 L HEMOGLOBIN (test code = 1003) 6.7 G/DL 11.5-15.5 LL RESULTS RECHECKE D AND VERIFIED HEMATOCRIT (test code = 1004) 23.6 % 34.0-45.0 L MCV (test code = 1005) 62.6 fL 80.0-99.0 L MCH (test code = 1006) 17.8 PG 25.0-33.0 L MCHC (test code = 1007) 28.4 G/DL 31.0-36.0 L RDW (test code = 1038) 17.4 % 11.5-15.0 H NEUTROPHILS (test code = 1008) 63.3 % AUTOMATED DIFFERENTIAL CONFIRMED WITH MANUAL SLIDE REVIEW. LYMPHOCYTES (test code = 1010) 27.2 % MONOCYTES (test code = 1011) 6.1 % EOSINOPHILS (test code = 1012) 2.3 % BASOPHILS (test code = 1013) 0.7 % IMMATURE GRANULOCYTES (test code = 1036) 0.4 % NUCLEATED RBCS (test code = 1065) 0.0 /100 WBC'S See_Comment [Automated message] The system which generated this result transmitted reference range: 0.0. The reference range was not used to interpret this result as normal/abnormal. PLATELET COUNT (test code = 1015) 553 K/UL 130-400 H ABSOLUTE NEUTROPHILS (test code = 1066) 5.19 K/UL 1.50-7.50 ABSOLUTE LYMPHOCYTES (test code = 1067) 2.23 K/UL 1.00-4.00 ABSOLUTE MONOCYTES (test code = 1068) 0.50 K/UL 0.20-1.00 ABSOLUTE EOSINOPHILS (test code = 1040) 0.19 K/UL 0.00-0.50 ABSOLUTE BASOPHILS (test code = 1069) 0.06 K/UL 0.00-0.20 ABS IMMATURE GRANULOCYTES (test code = 1020) 0.03 K/UL 0.00-0.10 ABS NUCLEATED RBCS (test code = 60207) 0.00 K/UL 0.00-0.11 COMMENTS (test code = 1016) (NOTE) SLIGHT ANISOCYTO SIS MARKED HYPOCHROMASIA MARKED MICROCYTOSIS PLATELETS APPEAR INCREASED Notes Date/Time Note Provider Source 2023-05-15 09:51:03 [id number] -09-08T09:51:03 Chief Complaint Patient presents with [place] [id number]:53:33Nurse [id number] .[id number] for patient [id number] NoteLNAurora [facility] [facility] [id number]:53:[id number] 50.1.72.3.15|[id number] [id number] [facility]"
[2023-10-19 11:52] LABS: Absolute Lymphocytes (CBC) 2.8 K/uL (0.7-4.9); Hematocrit 23.7 % (36.0-45.0); Lymphocytes % 27.3 % (15.3-44.8); MCV 60.1 fL (80-100); MPV 6.4 fL (7.6-11.3); Platelets 482 thou/uL (152-406); RBC Red Blood Cell Count 3.94 M/uL (3.86-4.86)
[2023-10-19 12:06] LABS: Potassium 3.8 mEq/L (3.5-5.1)
[2023-10-19 12:46] LABS: Blood Morphology Comment NOTED (NOT SEEN); Platelet Estimate INCR; White Blood Cell Scan OK (OK)
[2023-10-19 12:47] LABS: Hypochromasia 1+; Polychromasia 1+
--- NOTE | 2023-10-19 12:55 | EDPHYS ---
Physician Documentation [facility] Name: Aurelia Santacruz Age: 32 yrs Sex: Female : 1990 Arrival Date: 10/19/2023 Time: 10:22 Bed 6 Private MD: ED Physician Justin Rodriguez HPI: 10/19 10:43 This 32 yrs old Female presents to ER via Unassigned with complaints of Abnormal Lab ms3 Results. 10:43 32-year-old female presents to the emergency department for abnormal lab work that was ms3 obtained on Thursday. Patient states she is anemic and was told on Thursday she needed to go to the emergency department for blood transfusion. Patient states she had had lower abdominal discomfort for 6 months. Patient rates her discomfort a 4/10. Patient denies shortness of breath, lightheadedness, nausea, vomiting, chest pain. Historical: - Allergies: 11:00 Vicodin; nj1 - PMHx: 11:00 Kidney stones; nj1 - PSHx: 11:00 unknown ear surgery; nj1 - Immunization history:: Client reports having NOT received the Covid vaccine. - Social history:: Smoking status: Patient reports the use of cigarette tobacco products, smokes one pack cigarettes per day. ROS: 10:43 Constitutional: Negative for fever, and chills. Neck: Negative for injury, pain, and ms3 swelling, Cardiovascular: Negative for chest pain, and palpitations. Respiratory: Negative for shortness of breath, cough, wheezing, and pleuritic chest pain, MS/Extremity: Negative for injury and deformity, Skin: Negative for injury, rash, and discoloration, 10:43 Abdomen/GI: Positive for abdominal pain, Exam: 10:43 Constitutional: This is a well developed, well nourished patient who is awake, alert, ms3 and in no acute distress. Head/Face: Normocephalic, atraumatic. Neck: Trachea midline, no cervical lymphadenopathy. Supple, full range of motion without nuchal rigidity, or vertebral point tenderness. No Meningismus. Chest/axilla: Normal chest wall appearance and motion. Nontender with no deformity. Cardiovascular: Regular rate and rhythm with a normal S1 and S2. No gallops, murmurs, or rubs. Normal PMI, no JVD. No pulse deficits. Respiratory: Lungs have equal breath sounds bilaterally, clear to auscultation and percussion. No rales, rhonchi or wheezes noted. No increased work of breathing, no retractions or nasal flaring. Abdomen/GI: Soft, non-tender, with normal bowel sounds. No distension or tympany. No guarding or rebound. No evidence of tenderness throughout. Skin: Warm, dry with normal turgor. Normal color with no rashes, no lesions, and no evidence of cellulitis. MS/ Extremity: Pulses equal, no cyanosis. Neurovascular intact. Full, normal range of motion. Vital Signs: 10:58 BP 134 / 75; Pulse 100; Resp 16; Temp 98.5; Pulse Ox 99% on R/A; Weight 122.47 kg; nj1 Height 5 ft. 2 in. ; 11:48 BP 146 / 89; Pulse 95; Resp 18; Pulse Ox 98% on R/A; ph 13:28 BP 142 / 78; Pulse 89; Resp 18; Temp 98; Pulse Ox 99% on R/A; ph 10:58 Body Mass Index 49.38 (122.47 kg, 157.48 cm) nj1 MDM: 10:40 Patient medically screened. ms3 10:43 Differential Diagnosis Anemia versus lab error versus fibroids. External Records ms3 Reviewed: Outpatient labs: Labs drawn from October 15, 2023 showed white blood count 8.2, hemoglobin 6.7, hematocrit 23.6, platelets 533. BMP from same date shows sodium 138, potassium 4.5, carbon oxide 23, calcium 9.2, total protein 7.6, albumin 4.2, bilirubin less than 0.2, alk phos 95, AST 24, ALT 23. TSH 0.808. 12:54 Data reviewed: vital signs, nurses notes, lab test result(s), and as a result, I will ms3 discharge patient. Counseling: I had a detailed discussion with the patient and/or guardian regarding the historical points, exam findings, and any diagnostic results supporting the discharge/admit diagnosis, lab results, the need for outpatient follow up. Special discussion: I discussed with the patient/guardian in detail that at this point there is no indication for admission to the hospital. It is understood, however, that if the symptoms persist or worsen the patient needs to return immediately for re-evaluation. ED course: Patient's hemoglobin improving to greater than 7 at this time. Patient to follow-up with primary care physician in 2 to 3 days. Patient understands and agrees with plan. All questions were answered. Return precautions discussed include worsening symptoms, or any other concerns.. 10/19 10:41 Order name: CBC with Diff; Complete Time: 12:48 ms3 10/19 10:41 Order name: BMP; Complete Time: 12:48 ms3 10/19 11:55 Order name: CBC Smear Scan; Complete Time: 12:48 EDMS Administered Medications: No medications were administered Disposition Summary: 10/19/23 12:54 Discharge Ordered Notes: Location: Home ms3 Condition: Stable ms3 Diagnosis - Anemia, unspecified ms3 Followup: ms3 - With: Private Physician - When: 2 - 3 days - Reason: Recheck today's complaints Discharge Instructions: - Discharge Summary Sheet ms3 - Anemia ms3 Forms: - Medication Reconciliation Form ms3 - Thank You Letter ms3 - Antibiotic Education ms3 - Prescription Opioid Use ms3 - Patient Portal Instructions ms3 - Leadership Thank You Letter ms3 Prescriptions: - Ferrous Sulfate 325 mg (65 mg Iron) Oral Tablet - take 1 tablet ORAL route every 8 hours; 90 tablet; Refills: 0, Product ms3 Selection Permitted Signatures: Dispatcher [employer] EDMS Justin Rodriguez DO DO ms3 Doris Duffy, RN RN nj1
--- NOTE | 2023-10-19 12:55 | ER ---
Nurse's Notes [facility] Name: Aurelia Santacruz Age: 32 yrs Sex: Female : 1990 Arrival Date: 10/19/2023 Time: 10:22 Bed 6 Private MD: Diagnosis: Anemia, unspecified Presentation: 10/19 10:58 Chief complaint: Patient states: Instructed by PCP to come to ED for a blood nj1 transfusion. Had blood work done last week, has been having heavy menstrual periods. Feels well. Coronavirus screen: Vaccine status: Patient reports being unvaccinated. Ebola Screen: Patient denies travel to an Ebola-affected area in the 21 days before illness onset. Initial Sepsis Screen: Does the patient meet any 2 criteria? HR > 90 bpm. No. Patient's initial sepsis screen is negative. Does the patient have a suspected source of infection? No. Patient's initial sepsis screen is negative. Risk Assessment: Do you want to hurt yourself or someone else? Patient reports no desire to harm self or others. Onset of symptoms was 2022. 10:58 Method Of Arrival: Ambulatory [facility] 10:58 Acuity: CHIRAG 3 nj1 Historical: - Allergies: 11:00 Vicodin; nj1 - PMHx: 11:00 Kidney stones; nj1 - PSHx: 11:00 unknown ear surgery; nj1 - Immunization history:: Client reports having NOT received the Covid vaccine. - Social history:: Smoking status: Patient reports the use of cigarette tobacco products, smokes one pack cigarettes per day. Screenin:47 [facility] ED Fall Risk Assessment (Adult) History of falling in the last 3 months, ph including since admission No falls in past 3 months (0 pts) Score/Fall Risk Level 0 - 2 = Low Risk Oriented to surroundings, Maintained a safe environment, Provided non-skid footwear, Hourly rounding (assess needs \T\ fall precautionary measures) done. Abuse screen: Denies threats or abuse. Denies injuries from another. Nutritional screening: No deficits noted. Tuberculosis screening: No symptoms or risk factors identified. Assessment: 11:46 General: Appears in no apparent distress. comfortable, well groomed, Behavior is calm, ph cooperative, appropriate for age. General: Reports fatigue for. Pain: Complains of pain in headache. Neuro: Level of Consciousness is awake, alert, obeys commands, Oriented to person, place, time, situation. Neuro: Reports headache. Cardiovascular: Reports fatigue, lightheadedness, shortness of breath. Respiratory: Reports shortness of breath on exertion Airway is patent Respiratory effort is even, unlabored. GI: No signs and/or symptoms were reported involving the gastrointestinal system. : Denies vaginal bleeding. Derm: Skin is pink, warm \T\ dry. Vital Signs: 10:58 BP 134 / 75; Pulse 100; Resp 16; Temp 98.5; Pulse Ox 99% on R/A; Weight 122.47 kg; nj1 Height 5 ft. 2 in. ; 11:48 BP 146 / 89; Pulse 95; Resp 18; Pulse Ox 98% on R/A; ph 13:28 BP 142 / 78; Pulse 89; Resp 18; Temp 98; Pulse Ox 99% on R/A; ph 10:58 Body Mass Index 49.38 (122.47 kg, 157.48 cm) nj1 ED Course: 10:27 Patient arrived in ED. mg5 10:33 Justin Rodriguez DO is Attending Physician. ms3 11:00 Triage completed. nj1 11:01 Arm band placed on right wrist. nj1 11:34 Allyn Escalante, RN is Primary Nurse. ph 11:46 BMP Sent. ph 11:46 CBC with Diff Sent. ph 11:46 Initial lab(s) drawn, by ia, sent to lab. Inserted saline lock: 20 gauge in right ph antecubital area, using aseptic technique. Blood collected. 11:48 Patient has correct armband on for positive identification. Bed in low position. Side ph rails up X 1. Pulse ox on. NIBP on. Door closed. Noise minimized. Warm blanket given. 13:28 No provider procedures requiring assistance completed. IV discontinued, intact, ph bleeding controlled, No redness/swelling at site. Pressure dressing applied. Administered Medications: No medications were administered Medication: 11:48 VIS not applicable for this client. ph Outcome: 12:54 Discharge ordered by . ms3 13:28 Discharged to home ambulatory, with family, ph 13:28 Condition: good 13:28 Discharge instructions given to patient, Instructed on discharge instructions, follow up and referral plans. medication usage, Demonstrated understanding of instructions, follow-up care, medications, Prescriptions given X 1, 13:28 Patient left the ED. ph Signatures: Allyn Escalante RN RN ph Justin Rodriguez DO DO ms3 Doris Duffy RN RN nj1 Gemma Elizalde mg5 Corrections: (The following items were deleted from the chart) 11:01 10:58 Chief complaint: Patient states: Instructed by PCP to come to ED for a blood nj1 transfusion. Had blood work done last week, has been having heavy menstrual periods. nj1
[2023-10-19 14:23] VITALS: BP 142/78; TEMP 98; O2SAT 99
== END ==
LOC: ER 10:22
DX: D64.9 Anemia, unspecified (principal); F17.210 Nicotine dependence, cigarettes, uncomplicated; Z28.310 Unvaccinated for COVID-19; Z87.442 Personal history of urinary calculi; Z88.5 Allergy status to narcotic agent
CPT/HCPCS: 36415; 80048; 85025